=== PATIENT | female | born 1940 | race Caucasian/White ===

== ENCOUNTER → 2019-02-18 08:58 | Outpatient (CLI) | payer OTHER, SELFPAY ==
[2019-01-21 14:13] VITALS: BMI 27.3
--- NOTE | 2019-02-18 09:01 | ECHOD_ITS ---
Reason For Study: PHTN Procedure This was a 2D Doppler, Color Flow transthoracic echocardiogram. Exam performed in department. Left Ventricle Mild concentric left ventricular hypertrophy. The estimated ejection fraction is 40-45 %. Paced septal motion. Stage 1 diastolic dysfunction. There is moderate global hypokinesis of the left ventricle. Right Ventricle Normal size and thickness. ICD or pacer leads identified within the right ventricle. Normal systolic function. Atria The left atrium is severely enlarged. The right atrium is severely enlarged. Normal atrial septum. Mitral Valve Mild diffuse mitral valve thickening. Mild mitral annular calcification extending into the posterior leaflet. Mild (1+) posteriorly directed mitral valve insufficiency. Tricuspid Valve Normal tricuspid valve. Trivial tricuspid valve insufficiency. Right ventricular systolic pressure estimated to be 31 mmHg. Aortic Valve Trisinus/trileaflet aortic valve. Normal aortic valve. Pulmonic Valve Normal pulmonic valve. Trivial pulmonic valve insufficiency. Great Vessels Normal aortic root. Normal arch. Normal inferior vena cava. Inferior vena cava collapse with sniff. Pericardium/Pleural No pericardial effusion. MMode/2D Measurements & Calculations LVIDd: 4.5 cm IVSd: 1.5 cm LA dimension: 4.9 cm LVIDs: 3.7 cm LVPWd: 1.5 cm FS: 16.8 % LAV(MOD-bp): 98.2 ml LA A4 area: 28.3 cm2 RA A4 area: 24.8 cm2 LAV(MOD-bp) Indexed: 59.1 ml/m2 LAV(MOD-sp2): 98.7 ml LAV(MOD-sp4): 96.4 ml Time Measurements MV dec time: 0.36 sec Doppler Measurements & Calculations MV E max catrina: 55.3 cm/sec MV V2 max: 96.3 cm/sec MV P1/2t max catrina: 68.4 cm/sec MV A max catrina: 81.7 cm/sec MV max P.7 mmHg MV P1/2t: 89.6 msec MV E/A: 0.68 MV V2 mean: 53.9 cm/sec MV dec slope: 223.4 cm/sec2 MV mean P.4 mmHg MVA(P1/2t): 2.5 cm2 MV V2 VTI: 29.0 cm Ao V2 max: 109.5 cm/sec LV V1 max: 81.4 cm/sec MR max catrina: 610.6 cm/sec Ao max P.8 mmHg LV V1 max P.7 mmHg MR max P.1 mmHg Ao V2 mean: 71.8 cm/sec LV V1 mean P.2 mmHg MR mean catrina: 405.3 cm/sec Ao mean P.4 mmHg LV V1 mean: 50.1 cm/sec MR mean P.0 mmHg Ao V2 VTI: 21.7 cm LV V1 VTI: 17.0 cm MR VTI: 239.3 cm PA V2 max: 61.6 cm/sec PI end-d catrina: 122.3 cm/sec TR max catrina: 252.8 cm/sec TR max P.6 mmHg Interpretation Summary Mild concentric left ventricular hypertrophy. The estimated ejection fraction is 40-45 %. There is moderate global hypokinesis of the left ventricle. Stage 1 diastolic dysfunction. The left atrium is severely enlarged. The right atrium is severely enlarged. Mild (1+) posteriorly directed mitral valve insufficiency. Trivial tricuspid valve insufficiency. Right ventricular systolic pressure estimated to be 31 mmHg. Compared to echo report dated 01/06/2017, no appreciable changes noted. Ordering Physician: Jostin Banks Referring Physician: PHILLIP WOOTEN Performed By: Vladimir Lugo RCS
== END ==
PROVIDERS: Family Provider Family Medicine; PCP Family Medicine; Referring Provider Internal Medicine Cardiovascular Disease; Visit Provider Internal Medicine Cardiovascular Disease
DX: I27.20 Pulmonary hypertension, unspecified (principal); I25.10 Atherosclerotic heart disease of native coronary artery without angina pectoris; I10 Essential (primary) hypertension
CPT/HCPCS: 93306

== ENCOUNTER → 2019-03-27 11:21 | Outpatient (CLI) | payer OTHER, SELFPAY ==
[2019-01-21 14:13] VITALS: BMI 27.3
--- NOTE | 2019-03-27 11:24 | US_ITS ---
STUDY: RENAL ULTRASOUND - COMPLETE REASON FOR EXAM: Female, 78 years old. Recurrent urinary tract infection. TECHNIQUE: Ultrasound evaluation of the kidneys was performed with real-time and static felder-scale imaging. COMPARISON: None. FINDINGS: RIGHT KIDNEY: Normal location of the right kidney, which is normal in size. The right kidney measures 8.4 x 4.8 x 4.5 cm. There is a normal cortex of the right kidney. The renal cortex measures 1.5 cm. There is no right renal mass or cyst. There are no right renal calculi. There is no right hydronephrosis. DISTAL RIGHT URETER: There is non-visualization of the distal right ureter. There is no demonstrated right ureterovesical junction calculus. There is a visualized right ureteral jet. LEFT KIDNEY: Normal location of the left kidney, which is normal in size. The left kidney measures 8.6 x 3.9 x 4.7 cm. There is a normal cortex of the left kidney. The renal cortex measures 1.2 cm. There is no left renal mass or cyst. There are no left renal calculi. There is no left hydronephrosis. DISTAL LEFT URETER: There is non-visualization of the distal left ureter. There is no demonstrated left ureterovesical junction calculus. There is a visualized left ureteral jet. BLADDER: The urinary bladder has a volume of 237.3 ml. There is a normal wall thickness of the distended urinary bladder. There is a urinary degree with no distinct mass seen. There are no demonstrated bladder calculi. US/Kidney and Bladder IMPRESSION: Normal ultrasound of the kidneys. Nonspecific urinary debris, remainder of the urinary bladder ultrasound unremarkable. Electronically Signed: Kate Kirby MD at 4:37 EDT , Service support ,
== END ==
PROVIDERS: Family Provider Family Medicine; PCP Family Medicine; Referring Provider Urology; Visit Provider Urology
DX: N39.0 Urinary tract infection, site not specified (principal)
CPT/HCPCS: 76770

== ENCOUNTER → 2020-09-16 07:54 | Outpatient (CLI) | payer SELFPAY, OTHER ==
[2020-09-14 13:48] VITALS: BMI 24.9
--- NOTE | 2020-09-16 07:55 | ECHOD_ITS ---
Reason For Study: PRE OPERATIVE Procedure This was a 2D Doppler, Color Flow transthoracic echocardiogram. The exam was of adequate technical quality. Exam performed in department. Left Ventricle Normal LV size. Moderate segmental systolic dysfunction (see wall motion). The estimated ejection fraction is 35 %. Unable to assess diastolic dysfunction. Infero-Basal: Akinetic. Basal inferoseptal: Hypokinetic. Basal anteroseptal: Akinetic. Mid-Posterior: Hypokinetic. Mid-Inferior: Akinetic. Mid-inferoseptal : Akinetic. Mid-anteroseptal : Akinetic. Inferior [place] : Akinetic. Lateral [place] : Hypokinetic. Septal [place] : Akinetic. Right Ventricle Normal RV size. ICD or pacer leads identified within the right ventricle. Normal systolic function. Atria The left atrium is severely enlarged. The right atrium is severely enlarged. ICD or pacer leads identified within the right atrium. No doppler evidence for ASD. Mitral Valve There is mild mitral annular calcification. Extension of the mitral annular calcification on the base of the posterior mitral valve leaflet. Mild (1+) mitral valve insufficiency. Tricuspid Valve Normal tricuspid valve. Mild tricuspid valve insufficiency. Right ventricular systolic pressure estimated to be 29 mmHg. Aortic Valve Trisinus/trileaflet aortic valve. Mild focal aortic valve thickening. Pulmonic Valve The pulmonic valve is not well visualized. Mild-Moderate (1-2+) pulmonic valve insufficiency. Great Vessels Normal sized aortic root. Pericardium/Pleural Trivial pericardial effusion. There are no echocardiographic indications of cardiac tamponade. MMode/2D Measurements & Calculations LVIDd: 4.9 cm IVSd: 1.3 cm Ao root diam: 2.9 cm LVIDs: 3.8 cm LVPWd: 1.2 cm FS: 22.1 % LAV(MOD-bp): 139.7 ml LVAd ap4: 23.4 cm2 LVAd ap2: 23.6 cm2 LAV(MOD-bp) Indexed: 81.9 ml/m2 LVLd ap4: 7.1 cm LVLd ap2: 7.4 cm LAV(MOD-sp2): 139.5 ml EDV(MOD-sp4): 66.7 ml EDV(MOD-sp2): 65.8 ml LAV(MOD-sp4): 139.7 ml EDV(sp4-el): 65.5 ml EDV(sp2-el): 64.5 ml LVAs ap4: 17.6 cm2 LVAs ap2: 18.1 cm2 LVLs ap4: 6.4 cm LVLs ap2: 7.2 cm ESV(MOD-sp4): 41.5 ml ESV(MOD-sp2): 39.9 ml ESV(sp4-el): 41.1 ml ESV(sp2-el): 38.5 ml EF(MOD-sp4): 37.8 % EF(MOD-sp2): 39.4 % EF(sp4-el): 37.3 % SV(MOD-sp4): 25.2 ml SV(MOD-sp2): 25.9 ml SV(sp4-el): 24.5 ml LA dimension(2D): 5.1 cm LA A4 area: 34.9 cm2 RA A4 area: 35.2 cm2 Doppler Measurements & Calculations MV E max catrina: 117.1 cm/sec Ao V2 max: 101.3 cm/sec LV V1 max: 71.6 cm/sec Ao max P.1 mmHg LV V1 max P.1 mmHg PA V2 max: 73.1 cm/sec TR max catrina: 256.4 cm/sec TR max P.3 mmHg ECHO/Echo Complete Interpretation Summary Moderate segmental systolic dysfunction (see wall motion). The estimated ejection fraction is 35 %. The left atrium is severely enlarged. The right atrium is severely enlarged. There is mild mitral annular calcification. Extension of the mitral annular calcification on the base of the posterior mitr al valve leaflet. Mild (1+) mitral valve insufficiency. Mild tricuspid valve insufficiency. Mild focal aortic valve thickening. Mild-Moderate (1-2+) pulmonic valve insufficiency. Trivial pericardial effusion. There are no echocardiographic indications of cardiac tamponade. Right ventricular systolic pressure estimated to be 29 mmHg. Unable to assess diastolic dysfunction. ICD or pacer leads identified within the right atrium ICD or pacer leads identified within the right ventricle. Ordering Physician: La^Joseph^^^ Referring Physician: Abelardo Slade Performed By: Martine Stephens, RDCS, RVT
== END ==
PROVIDERS: PCP Family Medicine; Referring Provider Internal Medicine Cardiovascular Disease; Visit Provider Internal Medicine Cardiovascular Disease
DX: Z01.810 Encounter for preprocedural cardiovascular examination (principal); I47.1 Supraventricular tachycardia; I34.0 Nonrheumatic mitral (valve) insufficiency; I47.2 Ventricular tachycardia; I25.10 Atherosclerotic heart disease of native coronary artery without angina pectoris; Z95.0 Presence of cardiac pacemaker
CPT/HCPCS: 93306

== ENCOUNTER 2020-09-28 03:00 | Inpatient (IN) | payer OTHER, SELFPAY ==
[2020-09-14 13:48] VITALS: BMI 24.9
[2020-09-28] VITALS (12 sets, daily range): BP systolic 113–162; BP diastolic 56–88; PULSE 71–87; RESP 16–18; TEMP 36–36.9; O2SAT 95–98; BMI 25.0
--- NOTE | 2020-09-28 03:07 | HP.PCM.HOS_ITS ---
[facility] - General General Date of Admission: 09/28/20 HPI Narrative DANI OROZCO, is a 80 F with a significant history of complete uterovaginal prolapse; paroxysmal A. fib; hypertension and heart failure with reduced ejection fraction who presents emergency department with 2-day history of prog ressively worsening shortness of breath. Shortness of breath is at rest and it increases markedly with mild exertion. Associated with his symptoms is orthopnea and increased bilateral lower extremities swelling. Further patient reports weakness that has been going on for about 1 week and a half. Further patient reports urinary discharge; dysuria and urinary retention with dribbling. Patient went to [facility] ED where a Harvey catheter was placed. At the outside hospital urinalysis was abnormal. Patient received ceftriaxone. Patient was transferred to our hospital because she sees Dr. Concepcion, urologist and Dr. Tovar cardiology. Patient reports that she has hysterectomy scheduled for October 30, 2020. [facility] Medical History (Updated 09/28/20 @ 04:[address] Ming Russell MD) Atherosclerotic heart disease of [place] coronary artery without angina pectoris CHF (congestive heart failure) Complete uterovaginal prolapse Diastolic dysfunction Essential hypertension H/O sinus bradycardia h/o spinal stenosis LBBB (left bundle branch block) LV dysfunction Mild pulmonary hypertension Nonrheumatic mitral valve insufficiency Nonsustained ventricular tachycardia Paroxysmal supraventricular tachycardia Presence of cardiac pacemaker (~12/29/16) SOB (shortness of breath) Tachycardia Urge incontinence Home Medications Rafy-Mag 1 cap PO DAILY 01/06/17 [History Last Taken 01/06/17] aspirin 81 mg PO DAILY@0800 01/06/17 [History Last Taken 01/05/17] vitamin E (dl, acetate) 400 units PO DAILY 01/06/17 [History Last Taken 01/05/17] furosemide 40 mg tablet 40 mg PO DAILY PRN tab 09/14/20 [History Last Taken Unknown] trazodone 50 mg tablet 50 mg PO DAILY 09/14/20 [History Last Taken Unknown] amlodipine 2.5 mg PO DAILY 09/28/20 [History Last Taken Unknown] carvedilol 6.25 mg PO BID 09/28/20 [History Last Taken Unknown] lisinopril 20 mg PO BID 09/28/20 [History Last Taken Unknown] Allergy/AdvReac Type Severity Reaction Status Date / Time No Known Allergies Allergy Verified 09/28/20 02:22 Family History Father CAD (coronary artery disease) Mother CAD (coronary artery disease) Surgical History (Updated 09/18/20 @ 10:46 by Maribel Lange) History of bilateral cataract extraction History of cystoscopy Previous back surgery S/P appendectomy S/P cholecystectomy Social History Smoking Status: Never smoker alcohol intake: never substance use type: does not use what type of physical activity do you participate in: none additional social history: ROS ROS Narrative 12 point review of system is negative except as stated in HPI. Vital Signs Vital Signs Vital Signs: 09/28/20 02:15 Temperature 97.3 F L Temperature Source Oral Pulse Rate 87 Respiratory Rate 16 Blood Pressure 162/88 H Blood Pressure Mean 112 Blood Pressure Source Monitor Blood Pressure Position Semi-Fowlers Blood Pressure Location Right Arm Pulse Ox 95 Oxygen Delivery Method Room Air Physical Exam Narrative Alert and oriented x3 Nontraumatic; normocephalic Lung clear to auscultate Heart sounds S1-S2. Rate and rhythm irregularly irregular. Abdomen bowel sounds present soft, nontender nondistended. Urinary catheter in place. Bilateral lower feet and bilateral distal legs with edema. Assessment & Plan Assessment/Plan (1) Heart failure with reduced ejection fraction: Status: Acute Code(s): I50.20 - Unspecified systolic (congestive) heart failure Plan: With elevated BNP at outside hospital. Discussed with emergency department doctor at outside hospital to give Lasix. Hold home p.o. Lasix. Lasix 40 mg IV twice daily ordered. Potassium supplementation ordered. Trend BMP. Fluid restriction. Cardiac diet. Strict intake and output. Elevate bilateral lower legs. Radhames wrap to bilateral lower legs. With pacemaker Last echocardiogram on file 09/16/2020. Echocardiogram. Mild valvular disease. Right ventricular systolic pressure was 29 mmHg. Guideline directed medications of carvedilol and lisinopril continued. (2) Complete uterovaginal prolapse: Status: Acute Code(s): N81.3 - Complete uterovaginal prolapse Plan: Harvey catheter placed at outside hospital ED continued. Urology consult. (3) Cystitis: Status: Acute Code(s): N30.90 - Cystitis, unspecified without hematuria Plan: Patient reports that although urology is aware that she has cystitis her urology did not want any antibiotics given. Received ceftriaxone the emergency department. Ceftriaxone continued. Urology consult. (4) Paroxysmal A-fib: Status: Acute Code(s): I48.0 - Paroxysmal atrial fibrillation Plan: Patient reports that per last visit to cardiology, after hysterectomy anticoagulant will be considered. Reviewed Dr. Tovar's notes on 09/14/2020. Per Dr. Tovar's notes if patient remains in atrial fibrillation/flutter she should be considered for anticoagulation. Hold off anticoagulation for now. Carvedilol continued. (5) Essential hypertension: Status: Chronic Code(s): I10 - Essential (primary) hypertension Plan: Hypertension Blood pressure is not within goal Home blood pressure medication continued. Trend blood pressure and adjust blood pressure medications. Visit Charges Inpatient E&M: 23871 Init Hosp L3
[2020-09-28 05:59] LABS: Absolute Lymphocyte Count 1.46 X10^3/uL (0.83-4.51); Absolute Neutrophil Count 3.4 X10^3/uL (2.0-7.7); Basophil# 0.04 X10^3/uL; Basophil% 0.7 % (0-1); Eosinophils% 3.5 % (0-5); Hematocrit 36.7 % (37-47); Hemoglobin 12.1 g/dL (12.0-15.0); Lymphocyte # 1.46 X10^3/ul (0.83-4.51); Lymphocyte % 25.5 % (19-41); Mean Corpuscular Volume 91.1 fL (81-99); Mean Platelet Vol. 10.9 fl (6.2-12.0); Monocyte% 10.5 % (0-10); NRBC Flagged by Analyzer 0 % (0-5); Neutrophil # 3.41 X10^3/uL (2.7-7.7); Neutrophil % 59.5 % (47-70); Platelet Count 190 K/mm3 (150-450); RBC Distribution Width CV 13.4 % (11.6-14.6); RBC Distribution Width SD 44.9 fl (35.1-43.9); Red Blood Count 4.03 M/mm3 (4.2-5.4); White Blood Count 5.7 K/mm3 (4.4-11.0)
[2020-09-28 06:42] LABS: Anion Gap 8 (5-15); BUN 16 mg/dL (7-18); BUN/Creat Ratio 22.7 RATIO (10-20); Calcium,Total 8.3 mg/dL (8.5-10.1); Chloride 106 mmol/L (98-107); EST Glomerular Filtration Rate 85 mL/min (>60); Est Glom Filt Rate - Afr Amer 102 mL/min (>60); Estimated Creatinine Clearance 37.45 ml/min; Glucose 92 mg/dL (74-106); Magnesium 2.1 mg/dL (1.6-2.6); Potassium 3.1 mmol/L (3.5-5.1); Sodium Level 139 mmol/L (136-145)
--- NOTE | 2020-09-28 08:33 | PCM.PN.HOSP ---
Subjective Subjective: Patient with significant improvement in dyspnea sensation since initial ED presentation early in AM. Patient notes continued diuresis with Harvey catheter in place. Discussed current presentation with her and her daughter and she notes that she is supposed to have intervention per urology secondary to significant uterine prolapse with worsening issues with frequency and urinary retention. Discussed case also with patient's urologist, Dr. Concepcion as well as with family and will keep Harvey catheter in until patient surgical intervention performed. Patient denies any chest discomfort with recent dyspnea presentation. She does admit to swelling and orthopnea however. Patient denies fevers, chills, nausea, emesis, abdominal pain, chest pain. Objective Data Objective Data Vital Signs: Vital Signs Temp Pulse Resp BP Pulse Ox 98.4 F 71 18 150/83 H 98 09/28/20 06:20 09/28/20 06:59 09/28/20 06:20 09/28/20 06:20 09/28/20 07:32 Oxygen Delivery Method Room Air Weight: 145 lb 8.081 oz Body Mass Index (BMI) 25.0 Intake & Output: Intake and Output for Last 24 Hours 09/26/20 09/27/20 09/28/20 23:59 23:59 23:59 Intake Total 100 / 100 Output Total 1300 / 1300 Balance -1200 / -1200 Lab / Micro Data Result Diagrams: 09/28/20 05:38 09/28/20 14:48 Labs: Laboratory Results - last 24 hr 09/28/20 09/28/20 05:38 05:38 WBC 5.7 RBC 4.03 L Hgb 12.1 Hct 36.7 L MCV 91.1 MCH 30.0 MCHC 33.0 RDW Std Deviation 44.9 H RDW Coeff of [place] 13.4 Plt Count 190 MPV 10.9 Immature Gran % (Auto) 0.300 Neut % (Auto) 59.5 Lymph % (Auto) 25.5 [place] % (Auto) 10.5 H Eos % (Auto) 3.5 Baso % (Auto) 0.7 Absolute Neuts (auto) 3.4 Absolute Lymphs (auto) 1.46 Nucleated RBC % 0 Sodium 139 Potassium 3.1 L Chloride 106 Carbon Dioxide 25.0 Anion Gap 8 BUN 16 Creatinine 0.70 Estim Creat Clear Calc 37.45 Est GFR (MDRD) Af Amer 102 Est GFR (MDRD) Non-Af 85 BUN/Creatinine Ratio 22.7 H Glucose 92 Calcium 8.3 L Magnesium 2.1 Physical Exam Narrative Physical Examination: General: awake, alert, oriented x 3 and cooperative, seated upright in the PCU bed in no apparent distress. Skin: normal color, turgor, no icterus, cyanosis. HEENT: AT/NC, EOMI, PERRLA, MMM. Lungs: Diminished breath sounds, greater bases, moderate effort, improving, mild rales bases, ronchi or wheezing. Heart: Regular rate and rhythm; no gallop, rub audible. Abdomen: soft, NTTP, ND, normal BS. : Harvey catheter in place, clear urine draining. Extremities: no cyanosis or clubbing, mild pedal to distal [place] edema. Neurological: patient awake, alert, oriented as noted; cognitive function intact; pupils equally reactive to light and accomodation; cranial nerves II-XII grossly normal, moving all 4 extremities, no focal deficits, strength moderately global decrease secondary to acute presentation. Psychiatric: affect appears fatigued otherwise normal, no acute evidence of depressive or anxiety feelings. Assessment & Plan Assessment/Plan (1) Heart failure with reduced ejection fraction: Status: Acute Code(s): I50.20 - Unspecified systolic (congestive) heart failure (2) Complete uterovaginal prolapse: Status: Acute Code(s): N81.3 - Complete uterovaginal prolapse (3) Paroxysmal A-fib: Status: Acute Code(s): I48.0 - Paroxysmal atrial fibrillation (4) Essential hypertension: Status: Chronic Code(s): I10 - Essential (primary) hypertension (5) Presence of cardiac pacemaker: Status: Chronic Code(s): Z95.0 - Presence of cardiac pacemaker (6) CAD (coronary artery disease): Status: Acute Code(s): I25.10 - Atherosclerotic heart disease of [place] coronary artery without angina pectoris Plan: The patient is an 80 y/o F w/ PMHx: Chronic anemia, CAD, HTN, HLD, PAF, Systolic CHF, Hx SVT/Bradycardia s/p pacemaker placement, Complete uterovaginal prolapse who presents to the [facility] on 09/28[facility]20 with history of worsening symptoms over 1.5 weeks however more severe over the last 2 days of progressively worsening dyspnea, worse with exertion with orthopnea and increased bilateral lower extremity swelling as well as mild weight gain. 1. Acute Decompensated Systolic CHF: Patient admitted to the PCU, maintained on cardiac telemetry, continue IV lasix diuresis, monitor I/Os, maintain on intake restriction, continue medical therapy, obtain TSH and magnesium level. Most recent ECHO noted 09/16/20 with moderate segmental systolic dysfunction, EF 35%, severely enlarged LA and RA, mild MVI, mild TVI, mild to moderate TBI, trivial pericardial effusion with no evidence of cardiac tamponade, RVSP 29 mmHg, evidence of pacer leads within right atrium and right ventricle. PRN morphine to decrease afterload, continue oxygen supplementation, if necessary will position w/ upright position with legs off bed to decrease preload. 2. Dysuria with urinary retention, frequency secondary to complete uterovaginal prolapse: Urinalysis not marked appearing with no obvious evidence of UTI, will discontinue Rocephin therapy, discussed case with patient's urologist, Dr. Concepcion who agreed with continuation of Harvey catheter upon discharge, plan follow-up in her office in 1 week, required repeat evaluation per cardiology prior to consideration of surgical intervention which had been arranged for this coming October. 3. CAD: We will continue patient aspirin, Coreg, lisinopril regimen, not on statin therapy but will defer given age. 4. Hypertension: Continue home regimen including Norvasc, Coreg, lisinopril, IV Lasix as noted, PRN hydralazine. 5. Hyperlipidemia: Not on statin, defer given age, FLP with total cholesterol 202, triglycerides 104, LDL 122, VLDL 21, HDL 59. 6. Chronic normocytic anemia: Admission hemoglobin 12.1, previously had been 9-10, improved, continue to trend. 7. PAF: We will continue patient on Coreg regimen, not anticoagulated, sinus rhythm upon presentation. 8. History cardiac arrhythmia/SVT/bradycardia: Status post pacemaker status. 9. DVT prophylaxis: SCDs, lovenox. 10. CODE status: DNR-CCA, no intubation status. Procedures Hospitalists Procedures: Other Procedure - See Report (Not billable, patient admitted after midnight.)
[2020-09-28] MEDS: Lisinopril 20 MG Tablet PO ×2 (09:11→21:16)
[2020-09-28] MEDS: Potassium Chloride Oral Tablet 20 MEQ 40 MEQ PO (09:11)
[2020-09-28] MEDS: Vitamin E 400 UNITS Capsule PO (09:11)
[2020-09-28] MEDS: Aspirin 81 MG TAB.CHEW PO (09:11)
[2020-09-28] MEDS: Carvedilol 6.25 MG Tablet PO ×2 (09:11→16:19)
[2020-09-28] MEDS: amLODIPine 2.5 MG Tablet PO (09:11)
[2020-09-28] MEDS: Furosemide 40 MG/4 ML Vial IV ×2 (09:12→17:32)
--- NOTE | 2020-09-28 10:15 | CASEMGMT ---
AARON BAGLEY Assessment: Face to Face with pt for initial transition planning/care coordination assessment. AARON BAGLEY introduced self and role at [facility], pt voices understanding and consents to assessment. Pt is A/O x4 and answers all questions appropriately at this time. Pt sitting up in bed with daughter in law, Sarah Vega at bedside. Care providers, pharmacy, and demographics verified/updated. Admitting Dx: Acute exac of heart failure PCP: [facility] Specialists: Kj,cardio; SUSANNA Concepcion; Nelda, stud beef cattle farmer Preferred [facility]acy: [facility] in [place] Insurance: [employer] Prescription Benefit: No LNOK: Brisa Corona, dtr; Hood Vega, son Living Arrangements: Pt lives alone in a single story house with 2 steps to enter with a rail. Pt son lives next door to pt. Pt states she is I in ADL's. Denies concerns at home. Transportation: Pt hires drivers for transport. Denies concerns with transportation. DME/HHC/SNF: Pt reports having a cane, walker, shower chair and grab bar at toilet. Denies need for further DME. Pt denies previous HHC and SNF stay. Pt states no concerns with going home at time of dc. She was recently told of the possibility of going home with the marcial. She would be agreeable to having a SN come to the home for education. Dtr in law agrees with pt. Patient was provided a list of HHC providers including quality and resource use data and consistent with the patient?s preferred geographic region, medical needs, and insurance network. CM to check back with pt on preferred provider. Advised pt to ask CM if any further question/concerns/needs arise, voices understanding. Pt Goal: Home with HHC. Plan: Home with HHC and family support.
[2020-09-28 15:28] LABS: Anion Gap 7 (5-15); BUN 17 mg/dL (7-18); BUN/Creat Ratio 22.3 RATIO (10-20); Chloride 105 mmol/L (98-107); Creatinine, Serum 0.76 mg/dL (0.55-1.02); EST Glomerular Filtration Rate 77 mL/min (>60); Est Glom Filt Rate - Afr Amer 93 mL/min (>60); Estimated Creatinine Clearance 37.45 ml/min; Glucose 99 mg/dL (74-106); Potassium 3.7 mmol/L (3.5-5.1); Sodium Level 140 mmol/L (136-145)
--- NOTE | 2020-09-28 15:36 | CHAPLAIN ---
Type of Pastoral Visit _x__ Initial Visit ___ Follow-up Visit ___ On-call Visit ___ General Patient Visit ___ Spiritual Assessment ___ Family Conference ___ Bereavement ___ Rapid Response ___ Code Blue ___ Other (describe below) Pastoral Care Referral From _x__ Patient ___ Family ___ Nurse ___ Physician ___ Finish Cleaner ___ Pipe Maker ___ Other (describe below) Sacrament/Intervention _x__ Active listening ___ Anointing ___ Jainism ___ Bereavement ___ Communion ___ Karina exploration ___ ___ Life review ___ Prayer ___ Reconciliation ___ Sacrament of Sick _x__ Supportive presence ___ Wedding ___ Other (describe below) Pastoral Comments
[2020-09-28] MEDS: Acetaminophen 325 MG Tablet 650 MG PO (16:19)
[2020-09-28] MEDS: 0.9% Saline Lock 10 ML Syringe IV (17:32)
[2020-09-28] MEDS: traZODone 50 MG Tablet PO (21:16)
[2020-09-29] VITALS (7 sets, daily range): BP systolic 118–139; BP diastolic 66–77; PULSE 64–88; RESP 18; TEMP 36.2–36.9; O2SAT 95–97
[2020-09-29] MEDS: Enoxaparin 40 MG/0.4 ML Syringe SC (05:21)
[2020-09-29] MEDS: Carvedilol 6.25 MG Tablet PO (08:33)
[2020-09-29] MEDS: Vitamin E 400 UNITS Capsule PO (08:33)
[2020-09-29] MEDS: Aspirin 81 MG TAB.CHEW PO (08:33)
[2020-09-29] MEDS: Potassium Chloride Oral Tablet 20 MEQ 40 MEQ PO ×2 (08:33→11:57)
--- NOTE | 2020-09-29 09:35 | CASEMGMT ---
Addendum entered by Nanette Amor 09/29/20 13:17: Received tc back from [facility] that they are able to accept pt. Pt and dil aware. No further needs. Pt talking to [facility] when CM in room. Addendum entered by Nanette Amor 09/29/20 12:47: TC to [facility], they are unsure if they have staffing for pt. TC to [facility] and their [place] office has closed, awaiting [place] office for acceptance. RN CM in to pt room to update. She chooses [facility] for third choice. TC to [facility] and left message on vm. Awaiting call back. Original Note: RN KEVYN in to pt room to see if preferred provider for HHC was chosen. Pt chose 1. [facility] 2. [facility]. TC to [facility] to make referral, spoke with Stacie. She will check and call this CM back for acceptance.
[2020-09-29] MEDS: Furosemide 40 MG Tablet PO (10:08)
[2020-09-29] MEDS: amLODIPine 2.5 MG Tablet PO (10:08)
[2020-09-29] MEDS: Lisinopril 20 MG Tablet PO (10:08)
[2020-09-29 10:54] LABS: Absolute Lymphocyte Count 1.02 X10^3/uL (0.83-4.51); Absolute Neutrophil Count 3.5 X10^3/uL (2.0-7.7); Basophil# 0.05 X10^3/uL; Basophil% 0.9 % (0-1); Eosinophil# 0.16 X10^3/uL; Hematocrit 37.9 % (37-47); Hemoglobin 12.5 g/dL (12.0-15.0); Lymphocyte # 1.02 X10^3/ul (0.83-4.51); Lymphocyte % 19.4 % (19-41); Mean Corpuscular Hgb 30.7 pg (27.0-32.0); Mean Corpuscular Volume 93.1 fL (81-99); Monocyte# 0.54 X10^3/uL; Monocyte% 10.2 % (0-10); NRBC Flagged by Analyzer 0 % (0-5); Neutrophil # 3.49 X10^3/uL (2.7-7.7); Neutrophil % 66.3 % (47-70); Platelet Count 201 K/mm3 (150-450); RBC Distribution Width CV 13.5 % (11.6-14.6); RBC Distribution Width SD 46.6 fl (35.1-43.9); Red Blood Count 4.07 M/mm3 (4.2-5.4); White Blood Count 5.3 K/mm3 (4.4-11.0)
[2020-09-29] MEDS: 0.9% Saline Lock 10 ML Syringe IV (11:16)
[2020-09-29] MEDS: Ceftriaxone 1 GM/50 ML BAG IV (11:16)
[2020-09-29 11:19] LABS: Anion Gap 8 (5-15); BUN 18 mg/dL (7-18); BUN/Creat Ratio 18.1 RATIO (10-20); Calcium,Total 8.2 mg/dL (8.5-10.1); Chloride 105 mmol/L (98-107); EST Glomerular Filtration Rate 57 mL/min (>60); Est Glom Filt Rate - Afr Amer 68 mL/min (>60); Estimated Creatinine Clearance 37.45 ml/min; Glucose 169 mg/dL (74-106); Potassium 3.2 mmol/L (3.5-5.1); Sodium Level 140 mmol/L (136-145)
--- NOTE | 2020-09-29 11:23 | PCM.DC ---
Discharge Instructions Outpatient Procedure Reason For Visit: ACUTE EXACERBATIONOF HEART FAILURE WITH REDUCED Diet Discharge Diet: Low fat / Low cholesterol (Cardiac diet recommended, may liberalize to 2000 ml daily fluid chadwick.) Activity Discharge Activity: Return to Normal Activity Weight Bearing Status: Weight bearing as tolerated Additional Activity Instructions:: Please continue marcial catheter with care as taught during admission until re-evaluation with Dr. Concepcion given retention, frequency and recent UTI in setting of prolapse. Dressing / Incision Call your doctor if you observe: Fever of 101 or Higher, Inability to urinate (If any issues with marcial or not draining urine appropriately.), Inability to have a bowel movement, Shortness of breath, Fainting spells, Swelling in the ankles, Chest pain, Uncontrolled pain and - (Please call your mental health social worker if weight gain above 5 lbs.) Follow Up Care Please Follow Up With: Abelardo Slade When: Follow-up within 3-5 days to review admission, CHF exacerbation, UTI w/ urinary retention requiring marcial with planned Urology follow-up complicated by uterine prolapse. Test Results: Test results from this visit will be discussed in further detail at your follow-up appointment, if applicable. Discharge Plan Admission Admit Date/Time: 09/28/20 03:00 Primary Reason for Your Visit: Acute Diastolic CHF exacerbation, Klebsiella UTI, Urinary retention Attending Provider: Lorena Mendez Primary Care Provider: Abelardo Slade Instructions Patient Instructions: Heart Failure: Tracking Your Weight, Heart Failure: Making Changes to Your Diet, Taking Diuretics, ED Heart Failure, Congestive (CHF), ED Marcial Catheter, Care, ED Bladder Infection, Female (Adult) Additional Instructions / Restrictions: Given recent initiation routine lasix please have repeat basic metabolic panel to assess renal function at your follow-up with your primary care physician. Discharge Orders/Prescriptions Prescriptions: New furosemide 40 mg Tablet 40 mg PO DAILY 30 Days Qty: 30 RF: 0 potassium chloride [Klor-Con M20] 20 mEq Tablet,Er Particles/Crystals 40 meq PO DAILYCM 30 Days Qty: 30 RF: 0 cephalexin 500 mg capsule 500 mg PO Q8H 5 Days Qty: 15 RF: 0 Continued trazodone 50 mg tablet 50 mg PO DAILY RF: 0 aspirin 81 MG tablet,chewable 81 mg PO DAILY@0800 RF: 0 vitamin E (dl, acetate) 400 UNITS capsule 400 units PO DAILY RF: 0 Rafy-Mag 1 cap PO DAILY RF: 0 lisinopril 20 mg tablet 20 mg PO BID RF: 0 amlodipine 2.5 mg tablet 2.5 mg PO DAILY RF: 0 carvedilol 3.125 mg tablet 6.25 mg PO BID RF: 0 Discontinued furosemide [Lasix] 40 mg tablet 40 mg PO DAILY PRN (Reason: CHF, Edema) RF: 0 Referrals: Abelardo Slade MD [Primary Care Provider] - Disposition Disposition (needs filled in before D/C Order can be placed): Home, self care
--- NOTE | 2020-09-29 11:43 | DS.PCM_ITS ---
Providers Date of Admission: 09/28/20 Primary Care Physician: Dr. Abelardo Slade MD Reason For Visit: ACUTE EXACERBATIONOF HEART FAILURE WITH REDUCED Diagnosis Discharge Diagnosis (1) Heart failure with reduced ejection fraction: Status: Acute Code(s): I50.20 - Unspecified systolic (congestive) heart failure (2) Complete uterovaginal prolapse: Status: Acute Code(s): N81.3 - Complete uterovaginal prolapse (3) Paroxysmal A-fib: Status: Acute Code(s): I48.0 - Paroxysmal atrial fibrillation (4) Essential hypertension: Status: Chronic Code(s): I10 - Essential (primary) hypertension (5) Presence of cardiac pacemaker: Status: Chronic Code(s): Z95.0 - Presence of cardiac pacemaker (6) CAD (coronary artery disease): Status: Acute Code(s): I25.10 - Atherosclerotic heart disease of [place] coronary artery without angina pectoris Medications at Discharge Home Medications Rafy-Mag 1 cap PO DAILY 01/06/17 aspirin 81 mg PO DAILY@0800 01/06/17 vitamin E (dl, acetate) 400 units PO DAILY 01/06/17 trazodone 50 mg tablet 50 mg PO DAILY 09/14/20 amlodipine 2.5 mg PO DAILY 09/28/20 carvedilol 6.25 mg PO BID 09/28/20 lisinopril 20 mg PO BID 09/28/20 cephalexin 500 mg PO Q8H 5 Days #15 cap 09/29/20 furosemide 40 mg PO DAILY 30 Days #30 tab 09/29/20 potassium chloride [Klor-Con M20] 40 meq PO DAILYCM 30 Days #30 tab 09/29/20 Hospital Course Operations None Procedures EKG Summary of Care Provided Minutes Spent on Discharge: 35 Hospital Course: The patient is an 80 y/o F w/ PMHx: Chronic anemia, CAD, HTN, HLD, PAF, Systolic CHF, Hx SVT/Bradycardia s/p pacemaker placement, Complete uterovaginal prolapse who presented to the [facility] on 09/28/20 with history of worsening symptoms over 1.5 weeks however more severe over the last 2 days of progressively worsening dyspnea, worse with exertion with orthopnea and increased bilateral lower extremity swelling as well as mild weight gain. Patient admitted to the PCU, maintained on cardiac telemetry, continued initial IV lasix diuresis w/ oral transition on 09/29/20, monitored I/Os, maintained on intake restriction, continued medical therapy, magnesium level 2.1. Most recent ECHO noted 09/16/20 with moderate segmental systolic dysfunction, EF 35%, severely enlarged LA and RA, mild MVI, mild TVI, mild to moderate TBI, trivial pericardial effusion with no evidence of cardiac tamponade, RVSP 29 mmHg, evidence of pacer leads within right atrium and right ventricle. FLP with total cholesterol 202, triglycerides 104, LDL 122, VLDL 21, HDL 59. Patient also with recent worsening dysuria with urinary retention, frequency secondary to complete uterovaginal prolapse. UA upon [facility] presentation not marked but recent facility prior to transition UA notable and UCx resulted >100,000 CFU Klebsiella therefore patient maintained on IV rocephin and transitioned at discharge to keflex. Discussed case with patient's urologist, Dr. Concepcion who agreed with continuation of Marcial catheter upon discharge, plan follow-up in her office in 1 week, required repeat evaluation per cardiology prior to consideration of surgical intervention which had been arranged for this coming October. Patient d ischarged to home in stable condition, continued marcial, planned completion of abx therapy, continued daily lasix with PCP, Urology and Cardiology follow-up. Plan discussed with patient and family at length. DAY OF DISCHARGE PROGRESS NOTE: Subjective: Patient without acute event overnight per self and nursing report. Patient notes feeling improved, less dyspnea and resolved edema. Also lower pelvic discomfort improved with marcial and UTI treatment. Patient denies fever, chills, nausea, emesis, abdominal pain, chest pain or dyspnea. Patient agreeable to discharge to home with home health request per discussion with CM/SW. Patient will be discharged with follow-up with primary care physician kathleen guerrero 3-5 days in addition to Cardiology and Urology. Objective: T 98.5, heart rate 83, BP 135/77, respiratory rate 18, 97% on room air Physical Examination: General: awake, alert, oriented x 3 and cooperative, seated upright in the PCU bed in no apparent distress, notes feeling improved, less edema and dyspnea, more alert and resolved prior malaise. Skin: normal color, turgor, no icterus, cyanosis. HEENT: AT/NC, EOMI, PERRLA, MMM. Lungs: Improved BS, improved effort, resolved rales bases, no ronchi or wheezing. Heart: Regular rate and rhythm; no gallop, rub audible. Abdomen: soft, NTTP, ND, normal BS. : Marcial catheter in place, clear urine draining. Extremities: no cyanosis or clubbing, resolved BL LE edema. Neurological: patient awake, alert, oriented as noted; cognitive function in tact; pupils equally reactive to light and accomodation; cranial nerves II-XII grossly normal, moving all 4 extremities, no focal deficits, strength improved, mildly globally decreased. Psychiatric: affect appears improved, more normal, smiling, no acute evidence of depressive or anxiety feelings. Assessment and Plan: Please see hospital summary above. ABG / Lab / Microbiology Data Result Diagrams: 09/29/20 10:40 09/29/20 10:40 Laboratory: Laboratory Results - last 24 hr 09/28/20 09/29/20 09/29/20 14:48 10:40 10:40 WBC 5.3 RBC 4.07 L Hgb 12.5 Hct 37.9 MCV 93.1 MCH 30.7 MCHC 33.0 RDW Std Deviation 46.6 H RDW Coeff of [place] 13.5 Plt Count 201 MPV 11.0 Immature Gran % (Auto) 0.200 Neut % (Auto) 66.3 Lymph % (Auto) 19.4 [place] % (Auto) 10.2 H Eos % (Auto) 3.0 Baso % (Auto) 0.9 Absolute Neuts (auto) 3.5 Absolute Lymphs (auto) 1.02 Nucleated RBC % 0 Sodium 140 140 Potassium 3.7 3.2 L Chloride 105 105 Carbon Dioxide 28.0 27.0 Anion Gap 7 8 BUN 17 18 Creatinine 0.76 1.00 Estim Creat Clear Calc 37.45 37.45 Est GFR (MDRD) Af Amer 93 68 Est GFR (MDRD) Non-Af 77 57 L BUN/Creatinine Ratio 22.3 H 18.1 Glucose 99 169 H Calcium 8.0 L 8.2 L D/C Instructions Discharge Diet: Low fat / Low cholesterol (Cardiac diet recommended, may liberalize to 2000 ml daily fluid [place]adwick.) Discharge Activity: Return to Normal Activity Weight Bearing Status: Weight bearing as tolerated Additional Activity Instructions: Please continue marcial catheter with care as taught during admission until re-evaluation with Dr. Concepcion given retention, frequency and recent UTI in setting of prolapse. Call your doctor if you observe: Fever of 101 or Higher, Inability to urinate (If any issues with marcial or not draining urine appropriately.), Inability to have a bowel movement, Shortness of breath, Fainting spells, Swelling in the ankles, Chest pain, Uncontrolled pain and - (Please call your home health administrator if weight gain above 5 lbs.) Please Follow Up With: Abelardo Slade When: Follow-up within 3-5 days to review admission, CHF exacerbation, UTI w/ urinary retention requiring marcial with planned Urology follow-up complicated by uterine prolapse. Meaningful Use Info Meaningful Use Diagnoses (Choose all that apply): CHF CHF LAUREL/ARB ordered at discharge?: Yes Documented LVEF (%): 35 Discharge Plan Admission Admit Date/Time: 09/28/20 03:00 Primary Reason for Your Visit: Acute Diastolic CHF exacerbation, Acute Klebsiella UTI, Urinary retention Attending Provider: Lorena Mendez Primary Care Provider: Abelardo Slade Instructions Patient Instructions: Heart Failure: Tracking Your Weight, Heart Failure: Making Changes to Your Diet, Taking Diuretics, ED Heart Failure, Congestive (CHF), ED Marcial Catheter, Care, ED Bladder Infection, Female (Adult) Additional Instructions / Restrictions: Given recent initiation routine lasix please have repeat basic metabolic panel to assess renal function at your follow-up with your primary care physician. Discharge Orders/Prescriptions Prescriptions: New furosemide 40 mg Tablet 40 mg PO DAILY 30 Days Qty: 30 RF: 0 potassium chloride [Klor-Con M20] 20 mEq Tablet,Er Particles/Crystals 40 meq PO DAILYCM 30 Days Qty: 30 RF: 0 cephalexin 500 mg capsule 500 mg PO Q8H 5 Days Qty: 15 RF: 0 Continued trazodone 50 mg tablet 50 mg PO DAILY RF: 0 aspirin 81 MG tablet,chewable 81 mg PO DAILY@0800 RF: 0 vitamin E (dl, acetate) 400 UNITS capsule 400 units PO DAILY RF: 0 Rafy-Mag 1 cap PO DAILY RF: 0 lisinopril 20 mg tablet 20 mg PO BID RF: 0 amlodipine 2.5 mg tablet 2.5 mg PO DAILY RF: 0 carvedilol 3.125 mg tablet 6.25 mg PO BID RF: 0 Discontinued furosemide [Lasix] 40 mg tablet 40 mg PO DAILY PRN (Reason: CHF, Edema) RF: 0 Referrals: Abelardo Slade MD [Primary Care Provider] - Disposition Disposition (needs filled in before D/C Order can be placed): Home Health Service Visit Charges Inpatient E&M: 17457 Disch Hosp
--- NOTE | 2020-09-29 12:06 | NURSING ---
catheter care instructions given along with how to change to leg bag. instructions given to patient & daughter. both state understanding.
--- NOTE | 2020-09-29 12:19 | PHA.DC.MC ---
Pharmacy Service has performed discharge medication reconciliation and counseling for this patient. 1. CEPHALEXIN 500MG PO Q8H 2. POTASSIUM CHLORIDE 40MEQ PO DAILYCM The patient's discharge medication list was reviewed for discrepancies and discrepancies were resolved. Home Medications Rafy-Mag 1 cap PO DAILY 01/06/17 aspirin 81 mg PO DAILY@0800 01/06/17 vitamin E (dl, acetate) 400 units PO DAILY 01/06/17 trazodone 50 mg tablet 50 mg PO DAILY 09/14/20 amlodipine 2.5 mg PO DAILY 09/28/20 carvedilol 6.25 mg PO BID 09/28/20 lisinopril 20 mg PO BID 09/28/20 cephalexin 500 mg PO Q8H 5 Days #15 cap 09/29/20 furosemide 40 mg PO DAILY 30 Days #30 tab 09/29/20 potassium chloride [Klor-Con M20] 40 meq PO DAILYCM 30 Days #30 tab 09/29/20 The patient was counseled on the following discharge medications and changes in medications for homegoing were reviewed. The Reason for Use, instructions for use, and potential side effects were reviewed for all new medications. The patient's questions regarding all of their medications were answered. The patient was able to verbally demonstrate an understanding of their discharge medications. Patient counseled by pharmacy technician per diemBen.
== END 2020-09-29 17:26 | disposition home health service (06) | DRG 293 ==
PROVIDERS: Admitting Provider Hospitalist; PCP Family Medicine; Visit Provider Family Medicine
DX: I11.0 Hypertensive heart disease with heart failure (principal); N81.3 Complete uterovaginal prolapse; I50.23 Acute on chronic systolic (congestive) heart failure; I25.10 Atherosclerotic heart disease of native coronary artery without angina pectoris; I48.0 Paroxysmal atrial fibrillation; R33.9 Retention of urine, unspecified; I27.20 Pulmonary hypertension, unspecified; N39.41 Urge incontinence; N30.90 Cystitis, unspecified without hematuria; E78.5 Hyperlipidemia, unspecified; D64.9 Anemia, unspecified; Z66 Do not resuscitate; Z79.899 Other long term (current) drug therapy; Z79.82 Long term (current) use of aspirin; Z95.0 Presence of cardiac pacemaker
CPT/HCPCS: 36415; 80048; 83735; 85025; 97162; 97166; 97530; 97535; J7040; A4216; J0696; J1940

== ENCOUNTER → 2020-10-01 09:12 | Outpatient (CLI) | payer OTHER, SELFPAY ==
[2020-10-01 08:42] VITALS: BMI 24.0
[2020-10-01 10:46] LABS: Anion Gap 4 (5-15); BUN 22 mg/dL (7-18); Calcium,Total 9.1 mg/dL (8.5-10.1); Chloride 102 mmol/L (98-107); Creatinine, Serum 0.92 mg/dL (0.55-1.02); EST Glomerular Filtration Rate 62 mL/min (>60); Est Glom Filt Rate - Afr Amer 75 mL/min (>60); Glucose 97 mg/dL (74-106); Potassium 4.3 mmol/L (3.5-5.1); Sodium Level 138 mmol/L (136-145)
== END ==
PROVIDERS: PCP Family Medicine; Referring Provider Physician Assistant Medical; Visit Provider Physician Assistant Medical
DX: Z79.899 Other long term (current) drug therapy (principal)
CPT/HCPCS: 36415; 80048

== ENCOUNTER 2020-10-10 18:36 | Emergency (ER) | payer OTHER, SELFPAY ==
[2020-10-01 08:42] VITALS: BMI 24.0
--- NOTE | 2020-10-10 18:37 | ED.RN ---
[id number]- DILLON FOR UPDATES
[2020-10-10 18:38] VITALS: BP 142/70; PULSE 80; RESP 17; TEMP 36.3; O2SAT 97; BMI 24.0
[2020-10-10 18:39] VITALS: BP 142/70; PULSE 80; RESP 17; TEMP 36.3; O2SAT 97
--- NOTE | 2020-10-10 20:08 | EKG12_ITS ---
Test Reason : N/V Blood Pressure : / mmHG Vent. Rate : 075 BPM Atrial Rate : 075 BPM P-R Int : 138 ms QRS Dur : 144 ms QT Int : 448 ms P-R-T Axes : 108 -64 135 degrees QTc Int : 500 ms Sinus rhythm with marked sinus arrhythmia with occasional ventricular-paced complexes Left axis deviation Left bundle branch block Abnormal ECG Confirmed by MAHIN CAPELLAN, COLLIN ([id number]), continuity editor NAVJOT KHOURY ([id number]) on 10/13/2020 9:17:32 AM Referred By: MOOSE Confirmed By:COLLIN STOCKTON MD
--- NOTE | 2020-10-10 20:12 | EDS_ITS ---
HPI History of Present Illness Chief Complaint: Nausea/Vomiting Informant: patient and family Onset/Context/Timing Onset: Days Timing: Intermittent Current Severity: Mild Maximum Severity: Mild Narrative Narrative: 80-year-old female recent admission for obstructive urinary retention. On Monday of this past week she is to start feeling poorly with associated nausea and vomiting. She does have Harvey catheter in and is scheduled to have a hysterectomy and possibly some type of bladder lift procedure. She denies any fever or chills. No diarrhea. No melena. She denies any chest pain or shortness of breath. Prior similar symptoms: No Recent Illness/Hospitalization: Yes [facility] Medical History Atherosclerotic heart disease of [place] coronary artery without angina pectoris CHF (congestive heart failure) Complete uterovaginal prolapse Diastolic dysfunction Essential hypertension H/O sinus bradycardia h/o spinal stenosis LBBB (left bundle branch block) LV dysfunction Mild pulmonary hypertension Nonrheumatic mitral valve insufficiency Nonsustained ventricular tachycardia Paroxysmal supraventricular tachycardia Presence of cardiac pacemaker (~12/29/16) SOB (shortness of breath) Tachycardia Urge incontinence Home Medications Rafy-Mag 1 cap PO DAILY 01/06/17 [History Last Taken 01/06/17] aspirin 81 mg PO DAILY@0800 01/06/17 [History Last Taken 01/05/17] vitamin E (dl, acetate) 400 units PO DAILY 01/06/17 [History Last Taken 01/05/17] amlodipine 2.5 mg PO DAILY 09/28/20 [History Last Taken Unknown] lisinopril 20 mg PO BID 09/28/20 [History Last Taken Unknown] cephalexin 500 mg PO Q8H 5 Days #15 cap 09/29/20 [Rx Last Taken Unknown] carvedilol 6.25 mg tablet 6.25 mg PO BID #180 tab 10/01/20 [Rx Last Taken Unknown] furosemide 40 mg tablet 40 mg PO DAILY #90 tab 10/01/20 [Rx Last Taken Unknown] potassium chloride 20 mEq tablet,extended release(part/cryst) 40 meq PO DAILYCM #90 tab 10/01/20 [Rx Last Taken Unknown] cephalexin 500 mg PO Q6H 10 Days #40 cap 10/10/20 [Rx Last Taken Unknown] trazodone 50 mg PO QHS 10/10/20 [History Last Taken Unknown] Allergy/AdvReac Type Severity Reaction Status Date / Time No Known Allergies Allergy Verified 10/10/20 18:39 Family History Father CAD (coronary artery disease) Mother CAD (coronary artery disease) Surgical History History of bilateral cataract extraction History of cystoscopy Previous back surgery S/P appendectomy S/P cholecystectomy Social History Smoking Status: Never smoker alcohol intake: never substance use type: does not use what type of physical activity do you participate in: none additional social history: ROS ROS ED ROS Narrative Nausea, vomiting and generalized weakness. Review of Systems ROS Unobtainable: Denies due to encephalopathy, due to endotracheal tube, due to mental condition or due to mental status Constitutional Constitutional ED: Denies chills or fever(s) Eyes Eyes: Denies change in vision ENT ENT ED: Denies ear pain or sore throat Cardiovascular Cardiovascular: Denies chest pain Respiratory/Chest Respiratory/Chest: Denies cough, dyspnea or sputum Gastrointestinal Gastrointestinal: Reports nausea and vomiting; Denies abdominal pain, constipation, diarrhea or melena Genitourinary Genitourinary ED: Denies dysuria or hematuria Musculoskeletal Musculoskeletal: Denies arthralgias or myalgias Integumentary Denies rash Neurologic Neurologic: Denies headache(s) Psychiatric Psychiatric: Denies depression Endocrine Endocrinology: Denies polyuria Allergic/Immunologic Allergic/Immunologic ED: Denies urticaria EXAM Physical Exam Narrative Exam Narrative: Older female accompanied by family. Vital signs are stable afebrile. She does not look septic or toxic. She is in no distress. HEENT exam unremarkable. Neck nontender. Lungs clear to auscultation bilaterally. Heart regular rhythm no murmur. Abdomen soft nontender normal bowel sounds no peritoneal signs. No signs of obstruction. Moving all 4 extremities. No bao a. Neurologically she is awake alert with no focal motor deficits. Const Vital Signs: 10/10/20 18:38 10/10/20 18:39 10/10/20 20:37 Temperature 97.4 F L 97.4 F L Temperature Source Temporal Temporal Pulse Rate 80 80 79 Respiratory Rate 17 17 16 Blood Pressure 142/70 H 142/70 H 150/76 H Blood Pressure Mean 94 94 100 Pulse Ox 97 97 98 Oxygen Delivery Method Room Air Room Air Room Air 10/10/20 20:39 Temperature 98 F Temperature Source Temporal Pulse Rate 79 Respiratory Rate 18 Blood Pressure 150/76 H Blood Pressure Mean 100 Pulse Ox 99 Oxygen Delivery Method Room Air Positive well nourished and well developed General Appearance ED: well developed HEENT Reports moist mucous membranes Negative for trauma or tenderness Eyes PERRL and EOMs intact bilaterally Neck no lymphadenopathy and supple Chest Wall inspection of chest normal Resp normal respiratory effort and clear to auscultation bilaterally Auscultation: Negative for rhonchi or wheezes Cardio regular rate, regular rhythm and no murmurs GI normal to inspection, nondistended, normoactive bowel sounds, non-tender, non- distended and no masses Inspection: Negative for abdominal distention Auscultation: normoactive bowel sounds; Negative for hyperactive bowel sounds Palpation: soft; Negative for tender Back/Spine no CVA tenderness Extremity normal to inspection General Extremety ED: Negative for edema or tenderness General Extremity: Negative for edema Neuro Sensorium / Orientation: alert Motor Exam: strength 5/5 throughout Psych mental status grossly normal Skin no rashes or lesions noted MDM MDM MDM Narrative Medical decision making narrative: Elderly female recent admission for urinary retention. Now having nausea and vomiting. She has a chronic indwelling Harvey catheter. Nothing specific on exam. She will be treated with IV fluids and IV Zofran for nausea. Screening labs chest x-ray and EKG are being obtained. Repeat exam at 10:45 PM patient is doing well. I went over all test results with the patient and her family member. They are comfortable with her being discharged home. They did refuse a Covid test. Clinically I do not think this is Covid. Should be started on antibiotic Keflex and first dose given to her here in the emergency department. Urine culture is being sent. She will follow-up with her primary care physician next several days. Return if worse. Lab Data Attestation: I reviewed the patient's lab results. Labs: Laboratory Results - last 24 hr 10/10/20 10/10/20 10/10/20 19:05 19:05 20:33 WBC 5.3 RBC 4.14 L Hgb 12.5 Hct 38.0 MCV 91.8 MCH 30.2 MCHC 32.9 RDW Std Deviation 43.9 RDW Coeff of [place] 13.1 Plt Count 207 MPV 10.8 Immature Gran % (Auto) 0.200 Neut % (Auto) 64.9 Lymph % (Auto) 21.9 [place] % (Auto) 8.6 Eos % (Auto) 3.6 Baso % (Auto) 0.8 Absolute Neuts (auto) 3.4 Absolute Lymphs (auto) 1.15 Nucleated RBC % 0 Sodium 135 L Potassium 3.9 Chloride 101 Carbon Dioxide 26.0 Anion Gap 8 BUN 27 H Creatinine 1.02 Estim Creat Clear Calc 36.72 Est GFR (MDRD) Af Amer 67 Est GFR (MDRD) Non-Af 55 L BUN/Creatinine Ratio 26.5 H Glucose 109 H Calcium 8.6 Total Bilirubin 0.40 Direct Bilirubin 0.14 AST 35 ALT 39 Alkaline Phosphatase 90 Troponin I < 0.015 Total Protein 6.5 Albumin 3.2 Globulin 3.3 Urine Color Yellow Urine Clarity Clear Urine pH 7.0 Ur Specific [place] 1.010 Urine Protein Negative Urine Glucose (UA) Normal Urine Ketones Negative Urine Occult Blood 50 H Urine Nitrite Positive H Urine Bilirubin Negative Urine Urobilinogen Normal Ur Leukocyte Esterase 500 H Urine RBC 0-5 SEEN Urine WBC 5-10 SEEN Ur Squamous Epith Cells 0 SEEN Urine Bacteria 1+ Urine Mucus 0 SEEN Radiography Chest X-Ray - ED: 1 View, Read by ED Physician, Read by Radiologist, Normal, Lungs, Mediastinum, Bony Structures and Cardiomegaly Diagnostic Testing: Radiology Impression Chest X-Ray 10/10/20 20:30 IMPRESSION: Cardiomegaly. Probable COPD. No acute chest disease. Electronically Signed: Tim Becerra MD at 21:15 EDT , Service support , EKG Initial EKG: Attestation: I personally reviewed and interpreted this EKG as follows: Interpretation: No Acute Injury Pattern and Atrial Flutter Comments: Sinus rhythm rate of 75 with occasional areas of atrial flutter. Prior: No Prior Discharge Plan Triage Chief Complaint: Nausea/Vomiting ED Provider: Gaurav Cotton Dx/Rx/DC Orders Clinical Impression: Urinary tract infection, Weakness Instructions: ED Bladder Infection, Female (Adult), ED Vomiting (Adult) Prescriptions: New cephalexin 500 mg capsule 500 mg PO Q6H 10 Days Qty: 40 RF: 0 No Action carvedilol 6.25 mg tablet 6.25 mg PO BID Qty: 180 RF: 3 furosemide 40 mg tablet 40 mg PO DAILY Qty: 90 RF: 3 potassium chloride [Klor-Con M20] 20 mEq tablet,ER particles/crystals 40 meq PO DAILYCM Qty: 90 RF: 3 aspirin 81 MG tablet,chewable 81 mg PO DAILY@0800 RF: 0 vitamin E (dl, acetate) 400 UNITS capsule 400 units PO DAILY RF: 0 Rafy-Mag 1 cap PO DAILY RF: 0 lisinopril 20 mg tablet 20 mg PO BID RF: 0 amlodipine 2.5 mg tablet 2.5 mg PO DAILY RF: 0 cephalexin 500 mg capsule 500 mg PO Q8H 5 Days Qty: 15 RF: 0 trazodone 50 mg tablet 50 mg PO QHS RF: 0 Primary Care Provider: Abelardo Slade Referrals: Abelardo Slade MD [Primary Care Provider] - 3-5 Days Activity Restrictions/Additional Instructions: Plenty of fluids and rest Keflex 4 times a day. Zofran as needed for nausea. You have a urinary tract infection. I sent a urine culture. Follow-up with your primary care physician you can check those results. Return if you are feeling worse. Disposition Disposition: Home, self care
[2020-10-10] MEDS: 0.9% Normal Saline 1,000 ML 1000 ML IV (20:23)
[2020-10-10] MEDS: Ondansetron 4 MG/2 ML Vial IV (20:24)
--- NOTE | 2020-10-10 20:30 | RAD_ITS ---
STUDY: X-RAY CHEST REASON FOR EXAM: Female, 80 years old. weakness TECHNIQUE: Single AP portable view of the chest. COMPARISON: 01/06/2017 FINDINGS: Mild hyperexpansion of the lungs. No infiltrates. No effusions. There is no demonstrated pleural abnormality. There is severe cardiac enlargement. Pacemaker is seen with leads terminating in the right atrium and right ventricle. Normal mediastinum and [place]. Normal visualized pulmonary arteries. Normal visualized aortic arch and descending thoracic aorta. Normal visualized thoracic spine. Normal visualized ribs, clavicles, and shoulders. There is no demonstrated abnormality of the visualized soft tissue structures of the upper abdomen. RAD/Chest 1 View (Portable) IMPRESSION: Cardiomegaly. Probable COPD. No acute chest disease. Electronically Signed: Tim Becerra MD at 21:15 EDT , Service support ,
--- NOTE | 2020-10-10 20:36 | ED.RN ---
Pt and pt daughter refusing COVID test. Education provided. Pt still refusing. notified.
[2020-10-10 20:37] VITALS: BP 150/76; PULSE 79; RESP 16; O2SAT 98
[2020-10-10 20:39] VITALS: BP 150/76; PULSE 79; RESP 18; TEMP 36.6; O2SAT 99
[2020-10-10 20:43] LABS: Mucous, Urine 0 SEEN /hpf (<or=2+); Squamous Epithelial Cells - UA 0 SEEN /hpf (5-10)
[2020-10-10 20:48] LABS: Absolute Lymphocyte Count 1.15 X10^3/uL (0.83-4.51); Absolute Neutrophil Count 3.4 X10^3/uL (2.0-7.7); Basophil# 0.04 X10^3/uL; Basophil% 0.8 % (0-1); Eosinophil# 0.19 X10^3/uL; Eosinophils% 3.6 % (0-5); Hemoglobin 12.5 g/dL (12.0-15.0); Lymphocyte # 1.15 X10^3/ul (0.83-4.51); Lymphocyte % 21.9 % (19-41); Mean Corp Hgb Conc 32.9 g/dL (32-36); Mean Corpuscular Hgb 30.2 pg (27.0-32.0); Mean Corpuscular Volume 91.8 fL (81-99); Mean Platelet Vol. 10.8 fl (6.2-12.0); Monocyte# 0.45 X10^3/uL; Monocyte% 8.6 % (0-10); NRBC Flagged by Analyzer 0 % (0-5); Neutrophil # 3.41 X10^3/uL (2.7-7.7); Neutrophil % 64.9 % (47-70); Platelet Count 207 K/mm3 (150-450); RBC Distribution Width CV 13.1 % (11.6-14.6); RBC Distribution Width SD 43.9 fl (35.1-43.9); Red Blood Count 4.14 M/mm3 (4.2-5.4); White Blood Count 5.3 K/mm3 (4.4-11.0)
[2020-10-10 21:07] LABS: Color, Urine Yellow (Yellow); Glucose, Dipstick Normal (Normal); Ketone-Dipstick Negative (Negative); Leukocyte Esterase-Dipstick 500 /ul (Negative); Nitrite-Dipstick Positive (Negative); Occult Blood-Urine 50 /ul (Negative); Protein-Dipstick Negative (Negative); Urine Bilirubin Dipstick Negative (Negative); Urine Clarity Clear (Clear); Urine Urobilinogen Normal (Normal)
[2020-10-10 21:17] LABS: Red Blood Cells-Urine 0-5 SEEN /hpf (0-5); White Blood Cells 5-10 SEEN /hpf (0-5)
[2020-10-10 21:19] LABS: Bacteria 1+ /hpf (None Seen)
[2020-10-10 21:22] LABS: AST(SGOT) 35 U/L (15-37); Alanine Aminotransfer ALT/SGPT 39 U/L (13-56); Albumin, Serum 3.2 g/dL (3.2-5.0); Alkaline Phosphatase 90 U/L (45-117); Anion Gap 8 (5-15); BUN 27 mg/dL (7-18); BUN/Creat Ratio 26.5 RATIO (10-20); Bilirubin, Direct 0.14 mg/dL (0.00-0.30); Calcium,Total 8.6 mg/dL (8.5-10.1); Chloride 101 mmol/L (98-107); Creatinine, Serum 1.02 mg/dL (0.55-1.02); EST Glomerular Filtration Rate 55 mL/min (>60); Est Glom Filt Rate - Afr Amer 67 mL/min (>60); Estimated Creatinine Clearance 36.72 ml/min; Globulin 3.3 g/dL (2.2-4.2); Glucose 109 mg/dL (74-106); Potassium 3.9 mmol/L (3.5-5.1); Protein, Total 6.5 g/dL (6.4-8.2); Sodium Level 135 mmol/L (136-145)
[2020-10-10] MEDS: Cephalexin 250 MG Capsule 500 MG PO (22:55)
[2020-10-10 23:07] VITALS: BP 150/71; PULSE 75; RESP 15; O2SAT 98
== END 2020-10-10 23:08 | disposition home or self-care (01) ==
PROVIDERS: Emergency Provider Emergency Medicine; PCP Family Medicine
DX: N39.0 Urinary tract infection, site not specified (principal); R53.1 Weakness; I25.10 Atherosclerotic heart disease of native coronary artery without angina pectoris; I11.0 Hypertensive heart disease with heart failure; I50.9 Heart failure, unspecified; Z79.899 Other long term (current) drug therapy
CPT/HCPCS: 71045; 80048; 80076; 81001; 84484; 85025; 87077; 87086; 87088; 87186; 93005; 96361; 96374; 99283; J7030; A4216; J2405

== ENCOUNTER 2020-10-30 05:28 | Day surgery (SDC) | payer SELFPAY, OTHER ==
[2020-09-14 13:48] VITALS: BMI 24.9
[2020-10-15 09:57] VITALS: BMI 24.7
--- NOTE | 2020-10-23 16:25 | NURSING ---
pt and pt's dgtr-in-law planned to have COVID preop test completed in [place]. Dgtr-in-law phoned back and states pt unable to have test completed in [place] as planned. COVID test to be completed morning of surgery; pt and pt's dgtr-in-law aware if test is postive, surgery will be cancelled. Agreeable to that plan.
[2020-10-30] VITALS (14 sets, daily range): BP systolic 110–135; BP diastolic 56–70; PULSE 60–74; RESP 15–18; TEMP 36.1–36.6; O2SAT 93–100; BMI 26.4
[2020-10-30] MEDS: dexAMETHasone 10 MG/ML Vial 8 MG IV ×2 (06:15→06:40)
[2020-10-30] MEDS: Lactated Ringers 1,000 ML 40 ML IV (06:16)
[2020-10-30] MEDS: Acetaminophen 500 MG Tablet 1000 MG PO ×3 (06:36→17:27)
[2020-10-30] MEDS: Celecoxib 200 MG Capsule 400 MG PO (06:38)
[2020-10-30] MEDS: Gabapentin 600 MG Tablet PO (06:38)
[2020-10-30] MEDS: Scopolamine 1mg/72hr Patch 1 PATCH TD (06:39)
[2020-10-30 07:00] LABS: Bedside Glucose 85 mg/dL (70-110)
--- NOTE | 2020-10-30 07:23 | HP.PCM.OB_ITS ---
[facility] - General General Date of Admission: 01/06/17 HPI Narrative DANI OROZCO, is a 80 F who presents For total vaginal hysterectomy, possible bilateral salpingo-oophorectomy for prolapse [facility] Medical History (Updated 10/23/20 @ 13:29 by Myra Robins) Ambulates with cane Arthritis Atherosclerotic heart disease of [place] coronary artery without angina pectoris Cardiology follow-up encounter CHF (congestive heart failure) Complete uterovaginal prolapse Constipation Diastolic dysfunction Difficulty swallowing Essential hypertension H/O sinus bradycardia h/o spinal stenosis History of atrial fibrillation History of CHF (congestive heart failure) History of edema History of pacemaker History of stress test Indwelling urethral catheter present LBBB (left bundle branch block) LV dysfunction Mild pulmonary hypertension Non-smoker Nonrheumatic mitral valve insufficiency Nonsustained ventricular tachycardia Paroxysmal supraventricular tachycardia Presence of cardiac pacemaker (~12/29/16) Shortness of breath on exertion SOB (shortness of breath) Tachycardia Urge incontinence Wears dentures Wears glasses Home Medications Rafy-Mag 1 cap PO DAILY 01/06/17 [History Last Taken 10/29/20] aspirin 81 mg PO DAILY@0800 01/06/17 [History Last Taken 10/29/20] vitamin E (dl, acetate) 400 units PO DAILY 01/06/17 [History Last Taken 10/29/20] amlodipine 2.5 mg PO QHS 09/28/20 [History Last Taken 10/29/20] lisinopril 20 mg PO BID 09/28/20 [History Last Taken 10/30/20] carvedilol 6.25 mg tablet 6.25 mg PO BID #180 tab 10/01/20 [Rx Last Taken 10/30/20] trazodone 50 mg PO QHS 10/10/20 [History Last Taken 10/29/20] furosemide 40 mg PO DAILY 10/23/20 [History Last Taken 10/29/20] magnesium hydroxide [Milk of Magnesia] 5 ml PO LUNCH 10/23/20 [History Last Taken 10/29/20] potassium chloride [Klor-Con M20] 40 meq PO DAILYCM 10/23/20 [History Last Taken 10/29/20] Allergy/AdvReac Type Severity Reaction Status Date / Time No Known Allergies Allergy Verified 10/15/20 09:56 Family History Father CAD (coronary artery disease) Mother CAD (coronary artery disease) Surgical History (Updated 10/23/20 @ 13:29 by Myra Robins) History of bilateral cataract extraction History of cardiac catheterization History of cystoscopy Previous back surgery S/P appendectomy S/P cholecystectomy Social History Smoking Status: Never smoker alcohol intake: never substance use type: does not use what type of physical activity do you participate in: none additional social history: History 6 Elective abortions Hx Para 6 Spontaneous abortions Hx # Term Pregnancies Ectopic pregnancies Hx # Pregnancies Multiple births # of living children Past Pregnancies Del. Date Name GA/Weeks Outcome Route Bth Weight Infant Gen Labor Lgth Anesthesia Del Locatn Provider FOB Unknown Alejandra Unknown Marko Unknown Summer Unknown Bhupinder Unknown Hood Unknown Lori ALVAREZ Eyes Eyes: Reports systems reviewed and no addt'l complaints, except as documented ENT HEENT: Reports systems reviewed and no addt'l complaints, except as documented Cardiovascular Cardiovascular: Reports systems reviewed and no addt'l complaints, except as documented Respiratory/Chest Respiratory/Chest: Reports systems reviewed and no addt'l complaints, except as documented Gastrointestinal Gastrointestinal: Reports systems reviewed and no addt'l complaints, except as documented Genitourinary Genitourinary: Reports systems reviewed and no addt'l complaints, except as documented Musculoskeletal Musculoskeletal: Reports systems reviewed and no addt'l complaints, except as documented Integumentary Integumentary: Reports systems reviewed and no addt'l complaints, except as documented Neurologic Neurologic: Reports systems reviewed and no addt'l complaints, except as documented Psychiatric Psychiatric: Reports systems reviewed and no addt'l complaints, except as documented Endocrine Endocrinology: Reports systems reviewed and no addt'l complaints, except as documented Hematologic/Lymphatic Hematologic/Lymphatic: Reports systems reviewed and no addt'l complaints, except as documented Allergic/Immunologic Allergic/Immunologic: Reports systems reviewed and no addt'l complaints, except as documented Vital Signs Vital Signs Vital Signs: 10/30/20 06:28 Temperature 97.9 F Temperature Source Temporal Pulse Rate 60 Respiratory Rate 18 Respiratory Pattern Normal Blood Pressure 121/70 H Blood Pressure Mean 87 Blood Pressure Source Monitor Blood Pressure Position Semi-Fowlers Blood Pressure Location Left Arm Pulse Ox 100 Oxygen Delivery Method Room Air Weight Weight: 144 lb 6.444 oz Body Mass Index (BMI) 26.4 Physical Exam Const alert, oriented x3, no apparent distress, average body habitus, healthy appearing and well nourished HEENT normocephalic and moist oral mucous membranes Head and Scalp: atraumatic Eyes PERRL and EOMs intact bilaterally Neck full ROM Resp normal respiratory effort, no retractions and no use of accessory muscles Cardio regular rate and regular rhythm GI soft to palpation, non-tender and non-distended Extremity normal to inspection and full ROM Skin no rashes or lesions noted Neuro no focal motor deficits and no sensory deficits noted Psych mental status grossly normal, affect normal, speech normal and activity/motor be havior normal Labs Labs Labs: Blood Type O POSITIVE Antibody Screen NEGATIVE Hct 38.0 % (37-47) Hgb 12.5 g/dL (12.0-15.0) Assessment & Plan (1) Complete uterovaginal prolapse: PLAN: Patient presents for total vaginal hysterectomy, possible bilateral salpingo-oophorectomy for pelvic organ prolapse No changes to medical or surgical history since last visit Review of systems performed in the office and is negative Patient received medical clearance from cardiology and PCP The risks of the procedure were reviewed in length with the patient at the previous visit. Patient denies further questions regarding risks and benefits of surgery. Consent form signed in the office
[2020-10-30] MEDS: Cefazolin 2 GM in 0.9% Normal Saline 100 ML IV (07:29)
--- NOTE | 2020-10-30 07:30 | HYST_PTH ---
PATIENT: DANI OROZCO [place] [facility] [id number] AGE/SX: 80/F ROOM: RE10/30/[address]: Dr. Tasha Lutz MD : 1940 BED: DIS: 10/31/2020 SPEC #: [id number] RECD: 10/30/20 10:07 STATUS: BLACK CROWELL #: [id number] CABRERA: 10/30/20 07:[address]: Tasha Lutz DEPT: SURGICAL PATHOLOGY RECD BY: Grecia Davenport ENTERED: 10/30/20 11:12 SP TYPE: HYSTERECT OTHR DR: MD Dr. Abelardo Lombardo MD Tissues: Uterus, NOS Procedures: Surgery Specimen Level V HEADER OPERATION: ERAS, vaginal hysterectomy PRE-OP DIAGNOSIS: Complete uterovaginal prolapse TISSUE SUBMITTED: Uterus and mucosal tissue MICROSCOPIC DIAGNOSIS Uterus and mucosal tissue, vaginal hysterectomy: Cervix - focal ulceration, acute and chronic inflammation, granulation tissue reaction and reactive epithelial changes. - Chronic cystic cervicitis and squamous metaplasia. - Focal hyperkeratosis and parakeratosis. Endometrium - cystic atrophic endometrium. Myometrium - no pathologic diagnosis. Mucosal tissue - fragments of squamous mucosa with reactive epithelial changes. SJ:rg 11/02/2020 COMMENT Case has been reviewed in consultation with Dr. Mata who concurs with the above diagnosis. IDC:AM MICROSCOPIC DESCRIPTION Slides are reviewed. GROSS DESCRIPTION Received in fixative is one container labeled with the patient's name and designated uterus and mucosal tissue. The specimen consists of a hysterectomy specimen consisting of uterus with cervix and detached pieces of mucosal tissue. The uterus with cervix weighs 82 gm and measures 8 x 4.5 x 3 cm. The serosal surface is alvarenga, glistening. The ectocervical mucosa is unremarkable. The external os is oval in contour. The endocervical canal measures up to 3.5 cm in length. The endocervical mucosa is alvarenga, glistening and unremarkable. The triangular endometrial cavity measures 3.5 cm in length and up to 2 cm in width. The endometrium is alvarenga, glistening without any mass lesion and measures 0.1 cm in thickness. Sections of the uterine wall do not reveal any mass lesion and measures 1.5 cm in thickness. Also present in the container are multiple variable sized pieces of alvarenga mucosal tissue measuring in aggregate 6 x 5 x 0.6 cm. No mucosal lesion is identified. A few instrumentation davis are noted. Research Quality Assurance Analyst sections are submitted in seven cassettes as follows: 1 - anterior cervix, 2 - posterior cervix, 3 & 4 - anterior uterine wall, 5 & 6 - posterior uterine wall, 7 - mucosal tissue. / TENA:kirk 10/30/20 TC:5 CPT: 15639
--- NOTE | 2020-10-30 07:42 | DCINST_ITS ---
Discharge Instructions Diet Discharge Diet: No restrictions Activity Discharge Activity: May Not Drive (while taking narcotic pain medications.) and May Shower May resume sexual activity in: 8 weeks (until cleared by physician) Dressing / Incision Call your doctor if your incision/area has: Continuous Slow Oozing and Foul Smelling Discharge Call your doctor if you observe: Fever of 101 or Higher, Using more than one pad per hour, Shortness of breath, Dizziness, Chest pain and Uncontrolled pain Follow Up Care Please Follow Up With: Tasha Lutz MD When: 2 weeks Test Results: Test results from this visit will be discussed in further detail at your follow-up appointment, if applicable. Discharge Plan Admission Primary Reason for Your Visit: Hysterectomy Attending Provider: Tasha Lutz Primary Care Provider: Abelardo Slade Consulting Providers: Marley Concepcion Instructions Patient Instructions: Caring for Yourself After Hysterectomy, Vaginal Hysterectomy Discharge Orders/Prescriptions Prescriptions: No Action carvedilol 6.25 mg tablet 6.25 mg PO BID Qty: 180 RF: 3 aspirin 81 MG tablet,chewable 81 mg PO DAILY@0800 RF: 0 vitamin E (dl, acetate) 400 UNITS capsule 400 units PO DAILY RF: 0 Rafy-Mag 1 cap PO DAILY RF: 0 magnesium hydroxide [Milk of Magnesia] 400 mg/5 mL Suspension 5 ml PO LUNCH RF: 0 furosemide 40 mg tablet 40 mg PO DAILY RF: 0 potassium chloride [Klor-Con M20] 20 mEq tablet,ER particles/crystals 40 meq PO DAILYCM RF: 0 lisinopril 20 mg tablet 20 mg PO BID RF: 0 amlodipine 2.5 mg tablet 2.5 mg PO QHS RF: 0 trazodone 50 mg tablet 50 mg PO QHS RF: 0 Other Ambulatory Orders: COVID 19 AG RAPID (RN COLLECT) (Routine) Timeframe: 20201030 Facility: [facility] - Location: Laboratory Ordered By: Dr. Juan F Reed Magnesium (Routine) Timeframe: 20201030 Facility: [facility] - Location: Laboratory Ordered By: Dr. Juan F Reed Type & Screen - PAT ONLY (Routine) Timeframe: 20201030 Facility: [facility] - Location: Laboratory Ordered By: Dr. Tasha Lutz Referrals / Follow Up: Abelardo Slade MD [Primary Care Provider] -
--- NOTE | 2020-10-30 07:45 | OP.PCM_ITS ---
Problems Associated Problem List Diagnoses (1) Complete uterovaginal prolapse: Report of Operation Date of Procedure: 10/30/20 Pre-Operative Diagnosis: Pelvic organ prolapse Post-Operative Diagnosis: Same Surgery/Procedure Performed:: Total vaginal hysterectomy Description of Surgical Findings:: Complete procidentia. Normal-appearing cervix. Normal-appearing tubes and ovaries bilaterally coffee maker servicer: Gaurav Alexander Type of Anesthesia: General Special Medications: Ancef 2 g Specimen's removed: Uterus, cervix Drains: Harvey Estimated Blood Loss (mL): 50 Description of Procedure: Patient was taken to the operating room and was placed under general anesthesia was prepped and draped in normal sterile fashion in the dorsal lithotomy position. Preoperative antibiotics and SCDs and Harvey catheter was placed inside the bladder. Weighted speculum was placed in the vagina and the anterior and posterior lip of the cervix was grasped with 2 Dorian clamps and circumferentially injected with dilute vasopressin. A circumferential incision was made with a scalpel and the posterior cul-de-sac was entered into sharply and a longneck speculum was placed. The anterior cul-de-sac was also dissected down and entered into sharply and the uterosacral ligaments were clamped cut and suture ligated bilaterally followed by the cardinal ligaments which were Clamped cut and suture ligated bilaterally with 0 Vicryl. The uterus serially descended and progressive bites were taken bilaterally up to the level of the utero- ovarian ligament bilaterally which was clamped transected and double ligated with 0 Vicryl suture and 0 Vicryl free tie. Bilateral fallopian tubes and ovaries were well visualized and noted be within normal limits. As per previous discussion with the patient, these were left in situ. Excellent hemostasis was noted. Posterior peritoneum and the vagina were closed with [id number] 0 Vicryl pop offs including the posterior and anterior peritoneum in the reappro ximation. Excellent hemostasis was noted. All instruments removed from the vagina clear urine was noted at the end of the procedure and counts were correct. next dr clayton proceeded with her portion of the procedure. Complications None apparent Admit VTE Documentation VTE Present on Admission: No VTE Mechan Device Prophylaxis: SCD's VTE Pharm Prophylaxis ordered?: Yes Procedures Urinary/Genital [id number]: [id number] TVH <250 gr uterus
[2020-10-30] MEDS: Vasopressin 20 UNITS/ML Vial (10:00)
--- NOTE | 2020-10-30 11:03 | PCM.OPRPT ---
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: Report of Operation Date of Procedure: 10/30/20 Pre-Operative Diagnosis: Complete uterovaginal prolapse, stress urinary incontinence Post-Operative Diagnosis: Same Surgery/Procedure Performed:: Colpocleisis, mid urethral sling insertion, cystoscopy with bilateral ureteral catheterization Surgeon: Marley Concepcion fruit trimmer: Gaurav Type of Anesthesia: General Specimen's removed: None Estimated Blood Loss (mL): 50 cc Description of Procedure: The patient is an 80-year-old female with significant incomplete uterovaginal prolapse with urinary retention who presents for surgical intervention today. Informed consent was obtained. The patient was taken to the operating room and placed on the operating room table. Anesthesia monitored the head, neck, airway, IV access and vital signs throughout the case. Once anesthesia was appropriately ministered the patient was placed into dorsal lithotomy in Trendelenburg position. A Harvey catheter was inserted and the bladder was drained. Dr. Lutz proceeded with vaginal hysterectomy and closure of the cuff line. At this time I injected the vaginal mucosa in the submucosal area for hydrostatic dissection and hemostatic control. Both the anterior and posterior vaginal wall were removed. The cuff line was left intact. The posterior and anterior peritoneal tissues were then brought together in systematic fashion using 2-0 PDS in pursestring technique. The mucosa left at the cuff line was made into a tubular form with a channel of mucosa on either side of the vagina. A PDS was used approximately every centimeter in length until the entire vagina was closed and the mucosa was brought together with 2-0 Vicryl with running interlocking technique. The Harvey catheter was removed and a cystourethroscopy was then performed revealing no injury to the bladder or urethral mucosa. Bilateral ureteral orifices were located close to the bladder neck on the area of the trigone. Each orifice was intubated with a whistle-tip catheter. On initial insertion there was some J hooking to the ureters but both ureters allowed passage of the whistle-tip to 20 cm and urine was seen exuding from the catheter. At this time the cystoscope was removed and the Harvey catheter was reinserted. The mid urethra was identified and injected submucosally with vasopressin. A 1.5 cm vertical midline incision was made over the mid urethra. Bilateral dissection was performed on either side of the urethra with care being taken to avoid entrance into the urethra or the vaginal mucosa. At this time the trochars were used to pass the [place] tines into the obturator complexes bilaterally. The sling lay flat against the urethra without tension. The tensioning suture was cut. The midline incision was closed using running interlocking 2-0 Vicryl. At this time another cystoscopy was performed through the urethra and there was no injury to the urethra or the bladder identified. The cystoscope was removed, the Harvey catheter was replaced, and the patient was awakened and taken to the recovery room in good condition. There were no complications during this procedure. Grafts/Implants Used: Altis mid urethral sling Complications None Admit VTE Documentation VTE Present on Admission: Yes VTE Mechan Device Prophylaxis: SCD's VTE Pharm Prophylaxis ordered?: Yes
--- NOTE | 2020-10-30 11:12 | DCINST_ITS ---
Discharge Instructions Diet Discharge Diet: No restrictions Activity Discharge Activity: May Shower May resume sexual activity in: - (no sexual activity) Lifting Restrictions: 5 pounds Additional Activity Instructions:: No strenuous activity, no vacuuming, no lifting over 5 pounds, nothing per vagina, okay to shower, no tub bathing, swimming or hot tubs Dressing / Incision Call your doctor if your incision/area has: Continuous Slow Oozing and Foul Smelling Discharge Call your doctor if you observe: Fever of 101 or Higher, Inability to urinate, Using more than one pad per hour, Shortness of breath, Dizziness, Chest pain and Uncontrolled pain Follow Up Care Please Follow Up With: Tasha Lutz MD When: and Test Results: Test results from this visit will be discussed in further detail at your follow-up appointment, if applicable. Discharge Plan Admission Primary Reason for Your Visit: Hysterectomy Attending Provider: Tasha Lutz Primary Care Provider: Abelardo Slade Consulting Providers: Marley Concepcion Instructions Patient Instructions: Vaginal Hysterectomy, Caring for Yourself After Hysterectomy Discharge Orders/Prescriptions Prescriptions: No Action carvedilol 6.25 mg tablet 6.25 mg PO BID Qty: 180 RF: 3 aspirin 81 MG tablet,chewable 81 mg PO DAILY@0800 RF: 0 vitamin E (dl, acetate) 400 UNITS capsule 400 units PO DAILY RF: 0 Rafy-Mag 1 cap PO DAILY RF: 0 magnesium hydroxide [Milk of Magnesia] 400 mg/5 mL Suspension 5 ml PO LUNCH RF: 0 furosemide 40 mg tablet 40 mg PO DAILY RF: 0 potassium chloride [Klor-Con M20] 20 mEq tablet,ER particles/crystals 40 meq PO DAILYCM RF: 0 lisinopril 20 mg tablet 20 mg PO BID RF: 0 amlodipine 2.5 mg tablet 2.5 mg PO QHS RF: 0 trazodone 50 mg tablet 50 mg PO QHS RF: 0 Other Ambulatory Orders: COVID 19 AG RAPID (RN COLLECT) (Routine) Timeframe: 20201030 Facility: [facility] - Location: Laboratory Ordered By: Dr. Juan F Reed Magnesium (Routine) Timeframe: 20201030 Facility: [facility] - Location: Laboratory Ordered By: Dr. Juan F Reed Type & Screen - PAT ONLY (Routine) Timeframe: 20201030 Facility: [facility] - Location: Laboratory Ordered By: Dr. Tasha Lutz Referrals / Follow Up: Abelardo Slade MD [Primary Care Provider] -
[2020-10-30] MEDS: Docusate Sodium 100 MG Capsule PO (21:21)
[2020-10-30] MEDS: Carvedilol 6.25 MG Tablet PO (21:21)
[2020-10-30] MEDS: traZODone 50 MG Tablet PO (21:22)
[2020-10-30] MEDS: Cephalexin 500 MG Capsule PO (21:22)
[2020-10-31 00:50] VITALS: BP 113/64; PULSE 74; RESP 18; TEMP 36.4; O2SAT 97
[2020-10-31] MEDS: Acetaminophen 500 MG Tablet 1000 MG PO ×3 (00:52→12:04)
[2020-10-31 04:14] VITALS: BP 121/78; PULSE 63; RESP 18; TEMP 36.3; O2SAT 99
[2020-10-31] MEDS: 0.9% Saline Lock 10 ML Syringe IV (06:22)
--- NOTE | 2020-10-31 07:22 | PCM.PN.OB ---
Subjective Subjective Patient seen and examined. Reports doing well. Denies pain this morning. Had a small amount of bleeding, but none significant. Harvey catheter remains in place. Objective Data Objective Data Vital Signs: Vital Signs Temp Pulse Resp BP Pulse Ox 97.4 F L 63 18 121/78 H 99 10/31/20 04:14 10/31/20 04:14 10/31/20 04:14 10/31/20 04:14 10/31/20 04:14 Oxygen Flow Rate (L/min) 6 Oxygen Delivery Method Room Air Weight: 144 lb 6.444 oz Body Mass Index (BMI) 26.4 Intake & Output: Intake and Output for Last 24 Hours 10/29/20 10/30/20 10/31/20 23:59 23:59 23:59 Intake Total 888.67 / 1188.67 300 / 300 Output Total 700 / 1000 525 / 525 Balance 188.67 / 188.67 -225 / -225 Lab / Micro Data Micro: Microbiology 10/30/20 06:05 Interface Orders SARS-CoV-2 Antigen (Rapid) - Final ROS Constitutional Constitutional: Denies fever(s) Cardiovascular Cardiovascular: Denies chest pain, dyspnea or lightheadedness Gastrointestinal Gastrointestinal: Reports abdominal pain; Denies constipation or diarrhea Neurologic Neurologic: Denies dizziness or headache(s) Physical Exam Const alert, oriented x3, no apparent distress, average body habitus, healthy appearing and well nourished HEENT normocephalic Head and Scalp: atraumatic Eyes PERRL and EOMs intact bilaterally Neck full ROM Lymph Lymphatic: no lymphadenopathy noted Resp normal respiratory effort, no retractions and no use of accessory muscles Cardio regular rate GI soft to palpation, non-tender and non-distended Extremity normal to inspection and no clubbing, cyanosis or edema Skin no rashes or lesions noted Neuro no focal motor deficits and no sensory deficits noted Psych mental status grossly normal, affect normal and speech normal Assessment & Plan (1) S/P hysterectomy: PLAN: Postop day 1 status post total vaginal hysterectomy with colpocleisis and mid urethral sling Patient doing well this a.m. A.m. CBC pending Vital signs stable Harvey catheter to be removed this a.m.-we will ensure patient can void prior to discharge Anticipate DC to home later this afternoon
[2020-10-31 07:45] VITALS: BP 129/74; PULSE 60; RESP 16; TEMP 36.4; O2SAT 99
[2020-10-31 07:51] VITALS: O2SAT 94
[2020-10-31 07:52] LABS: Hematocrit 36.4 % (37-47); Mean Corpuscular Hgb 30.1 pg (27.0-32.0); Mean Corpuscular Volume 91.2 fL (81-99); Mean Platelet Vol. 10.2 fl (6.2-12.0); Platelet Count 180 K/mm3 (150-450); RBC Distribution Width CV 13.2 % (11.6-14.6); RBC Distribution Width SD 44.2 fl (35.1-43.9); Red Blood Count 3.99 M/mm3 (4.2-5.4); White Blood Count 10.1 K/mm3 (4.4-11.0)
--- NOTE | 2020-10-31 09:22 | PCM.PN.BLA ---
Progress Note Doing well, up eating breakfast. Pain is controlled. Excited to have done so well. Harvey out, has not yet voided. Physical Exam Const alert, oriented x3 and no apparent distress Resp normal respiratory effort, normal air movement, no retractions and no use of accessory muscles Effort and Inspection: able to speak in complete sentences GI soft to palpation, non-tender and non-distended Extremity no calf tenderness Skin no rashes or lesions noted, skin turgor normal, no jaundice, no petechiae and no mottling Assessment & Plan Assessment/Plan (1) Complete uterovaginal prolapse: PLAN: await trial of void results. home today. follow up in the office, patient to call for appt. 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
[2020-10-31] MEDS: Enoxaparin 40 MG/0.4 ML Syringe SC (09:54)
[2020-10-31] MEDS: Cephalexin 500 MG Capsule PO (09:54)
[2020-10-31] MEDS: Docusate Sodium 100 MG Capsule PO (09:54)
[2020-10-31] MEDS: Carvedilol 6.25 MG Tablet PO (09:55)
[2020-10-31] MEDS: Lisinopril 20 MG Tablet PO (09:56)
[2020-10-31 12:06] VITALS: BP 116/72; PULSE 60; RESP 16; TEMP 36.5; O2SAT 100
--- NOTE | 2020-10-31 14:43 | NURSING ---
Pt willing to attempt void-assisted to bathroom. Pt incontinent of small amount of urine and dribbled urine entire way to the toilet where she continued to void and missed hat. Assisted to ambulate short distance in hallway per pt request, returned to chair. Bladder scanned for 13ml PVR.
[2020-10-31 16:11] VITALS: BP 121/78; PULSE 60; RESP 16; TEMP 36.7; O2SAT 100
== END 2020-10-31 16:48 ==
LOC: SDC 05:31 → AC 05:32 → MS3 15:30
PROVIDERS: Urology; PCP Family Medicine; Referring Provider Obstetrics & Gynecology; Visit Provider Obstetrics & Gynecology
PROC: (CPT 58260; principal; 2020-10-30 07:10)
PROC: 0TJB8ZZ Inspection of Bladder, Via Natural or Artificial Opening Endoscopic (ICD-10-PCS; CPT 57288; 2020-10-30 07:10)
DX: N81.3 Complete uterovaginal prolapse (principal); N72 Inflammatory disease of cervix uteri; N88.0 Leukoplakia of cervix uteri; I25.10 Atherosclerotic heart disease of native coronary artery without angina pectoris; I11.0 Hypertensive heart disease with heart failure; I50.9 Heart failure, unspecified; I27.20 Pulmonary hypertension, unspecified; N39.3 Stress incontinence (female) (male); R33.9 Retention of urine, unspecified; I48.0 Paroxysmal atrial fibrillation; M19.90 Unspecified osteoarthritis, unspecified site; I47.1 Supraventricular tachycardia; Z79.82 Long term (current) use of aspirin; Z95.0 Presence of cardiac pacemaker; Z79.899 Other long term (current) drug therapy
CPT/HCPCS: 00940; 57120; 57288; 58260; 36415; 82962; 85027; 86850; 86900; 86901; 87426; 88307; J7120; A4216; C1758; J2405

== ENCOUNTER → 2021-11-01 | Outpatient (CLI) | payer SELFPAY, OTHER ==
--- NOTE | 2021-11-01 10:06 | ECHOCS_ITS ---
Reason For Study: CM Procedure This was a 2D Doppler, Color Flow transthoracic echocardiogram. The study was technically difficult. Contrast injection was performed. Exam performed in department. Left Ventricle Normal LV size. Mild segmental systolic dysfunction (see wall motion). The estimated ejection fraction is 45 %. Unable to assess diastolic dysfunction. Infero-Basal: Akinetic. Basal inferoseptal: Hypokinetic. Basal anteroseptal: Hypokinetic. Mid-Posterior: Hypokinetic. Mid- inferoseptal : Hypokinetic. Mid-anteroseptal : Hypokinetic. Lateral Mentcle : Hypokinetic. Septal Mentcle : Hypokinetic. Right Ventricle Normal RV size. ICD or pacer leads identified within the right ventricle. Normal systolic function. Atria The left atrium is severely enlarged. The right atrium is severely enlarged. ICD or pacer leads identified within the right atrium. No doppler evidence for ASD. Mitral Valve There is mild to moderate mitral annular calcification. Extension of the mitral annular calcification onto the base of the posterior mitral valve leaflet. Mild focal mitral valve calcification, bileaflet. Moderate (2+) mitral valve insufficiency. Tricuspid Valve Normal tricuspid valve. Moderate (2+) tricuspid valve insufficiency. Right ventricular systolic pressure estimated to be 29 mmHg. Aortic Valve Trisinus/trileaflet aortic valve. Mild diffuse aortic valve thickening. Mild focal aortic valve calcification. Pulmonic Valve The pulmonic valve is not well visualized. Trivial pulmonic valve insufficiency. Great Vessels Normal sized aortic root. Pericardium/Pleural No pericardial effusion. Medication Diluted definity 4ml given slow IV push to enhance endocardial definition. MMode/2D Measurements & Calculations LVIDd: 4.3 cm IVSd: 1.2 cm Ao root diam: 3.2 cm LVIDs: 3.0 cm LVPWd: 0.84 cm RVDd: 3.2 cm FS: 30.0 % LAV(MOD-bp): 125.8 ml LA A4 area: 33.4 cm2 LA dimension(2D): 5.9 cm LAV(MOD-bp) Indexed: 75.5 ml/m2 LAV(MOD-sp2): 118.5 ml LAV(MOD-sp4): 129.9 ml RA A4 area: 34.3 cm2 Doppler Measurements & Calculations MV E max catrina: 98.7 cm/sec Ao V2 max: 100.4 cm/sec LV V1 max: 69.6 cm/sec Ao max P.0 mmHg LV V1 max P.9 mmHg Ao V2 mean: 63.4 cm/sec Ao mean P.8 mmHg Ao V2 VTI: 18.5 cm PA V2 max: 52.1 cm/sec TR max catrina: 255.8 cm/sec TR max P.2 mmHg ECHO/Echo Complete W/ Contrast Interpretation Summary The study was technically difficult. Contrast injection was performed. Mild segmental systolic dysfunction (see wall motion). The estimated ejection fraction is 45 %. The left atrium is severely enlarged. The right atrium is severely enlarged. There is mild to moderate mitral annular calcification. Extension of the mitral annular calcification onto the base of the posterior mi tral valve leaflet. Mild focal mitral valve calcification, bileaflet. Moderate (2+) mitral valve insufficiency. Moderate (2+) tricuspid valve insufficiency. Mild diffuse aortic valve thickening. Mild focal aortic valve calcification. Trivial pulmonic valve insufficiency. Right ventricular systolic pressure estimated to be 29 mmHg. Unable to assess diastolic dysfunction. ICD or pacer leads identified within the right atrium ICD or pacer leads identified within the right ventricle. Ordering Physician: Joseph Tovar Referring Physician: Abelardo Slade Performed By: Lissy Araujo RDCS, RVT
== END | disposition home or self-care (01) ==
LOC: CVS 10:05
PROVIDERS: PCP Family Medicine; Referring Provider Internal Medicine Cardiovascular Disease; Visit Provider Internal Medicine Cardiovascular Disease
DX: I42.8 Other cardiomyopathies (principal)
CPT/HCPCS: 93306; Q9957; A4216; C8929

== ENCOUNTER → 2023-04-10 | Outpatient (CLI) | payer OTHER, SELFPAY ==
[2023-04-10 13:20] LABS: Absolute Lymphocyte Count 1.18 X10^3/uL (0.83-4.51); Absolute Neutrophil Count 3.7 X10^3/uL (2.0-7.7); Basophil# 0.05 X10^3/uL; Basophil% 0.9 % (0-1); Eosinophil# 0.17 X10^3/uL; Hematocrit 39.2 % (37-47); Hemoglobin 12.8 g/dL (12.0-15.0); Lymphocyte # 1.18 X10^3/ul (0.83-4.51); Lymphocyte % 20.7 % (19-41); Mean Corp Hgb Conc 32.7 g/dL (32-36); Mean Corpuscular Hgb 31.1 pg (27.0-32.0); Mean Corpuscular Volume 95.1 fL (81-99); Mean Platelet Vol. 11.4 fl (6.2-12.0); Monocyte# 0.54 X10^3/uL; Monocyte% 9.5 % (0-10); NRBC Flagged by Analyzer 0 % (0-5); Neutrophil # 3.74 X10^3/uL (2.7-7.7); Neutrophil % 65.7 % (47-70); Platelet Count 168 K/mm3 (150-450); RBC Distribution Width CV 13.5 % (11.6-14.6); RBC Distribution Width SD 47.5 fl (35.1-43.9); Red Blood Count 4.12 M/mm3 (4.2-5.4); White Blood Count 5.7 K/mm3 (4.4-11.0)
[2023-04-10 13:48] LABS: BNP,B-Type NATRIURETIC PEPTIDE 533.1 pg/mL (0-100)
[2023-04-10 13:58] LABS: Anion Gap 8 (5-15); BUN 23 mg/dL (7-18); BUN/Creat Ratio 19.3 RATIO (10-20); Calcium,Total 9.5 mg/dL (8.5-10.1); Chloride 101 mmol/L (98-107); Creatinine, Serum 1.19 mg/dL (0.55-1.02); EST Glomerular Filtration Rate 46 mL/min (>60); Est Glom Filt Rate - Afr Amer 55 mL/min (>60); Glucose 97 mg/dL (74-106); Sodium Level 136 mmol/L (136-145); T4 Free Direct 1.17 ng/dL (0.76-1.46); Thyroid Stim Hormone (TSH) 2.24 uIU/mL (0.358-3.74)
== END | disposition home or self-care (01) ==
LOC: LAB 12:26
PROVIDERS: PCP Family Medicine; Referring Provider Nurse Practitioner Family; Visit Provider Nurse Practitioner Family
DX: E87.1 Hypo-osmolality and hyponatremia (principal); I42.8 Other cardiomyopathies; I48.0 Paroxysmal atrial fibrillation; R53.83 Other fatigue
CPT/HCPCS: 36415; 80048; 83880; 84439; 84443; 85025

== ENCOUNTER → 2023-12-01 | Outpatient (CLI) | payer OTHER, SELFPAY ==
[2023-12-01 14:16] LABS: Hematocrit 38.6 % (37-47); Hemoglobin 12.7 g/dL (12.0-15.0); Mean Corp Hgb Conc 32.9 g/dL (32-36); Mean Corpuscular Hgb 31.2 pg (27.0-32.0); Mean Corpuscular Volume 94.8 fL (81-99); Mean Platelet Vol. 10.7 fl (6.2-12.0); Platelet Count 150 K/mm3 (150-450); RBC Distribution Width CV 13.6 % (11.6-14.6); RBC Distribution Width SD 47.7 fl (35.1-43.9); Red Blood Count 4.07 M/mm3 (4.2-5.4); White Blood Count 5.2 K/mm3 (4.4-11.0)
[2023-12-01 14:45] LABS: Anion Gap 7 (5-15); BUN 31 mg/dL (7-18); BUN/Creat Ratio 24.8 RATIO (10-20); Calcium,Total 9.5 mg/dL (8.5-10.1); Chloride 101 mmol/L (98-107); Creatinine, Serum 1.25 mg/dL (0.55-1.02); EST Glomerular Filtration Rate 43 mL/min (>60); Est Glom Filt Rate - Afr Amer 52 mL/min (>60); Glucose 98 mg/dL (74-106); Potassium 4.6 mmol/L (3.5-5.1); Sodium Level 133 mmol/L (136-145)
== END | disposition home or self-care (01) ==
LOC: LAB 13:48
PROVIDERS: PCP Family Medicine; Referring Provider Internal Medicine Cardiovascular Disease; Visit Provider Internal Medicine Cardiovascular Disease
DX: I48.0 Paroxysmal atrial fibrillation (principal)
CPT/HCPCS: 36415; 80048; 85027

== ENCOUNTER → 2024-06-11 | Outpatient (CLI) | payer OTHER, SELFPAY ==
--- NOTE | 2024-06-11 10:45 | RAD_ITS ---
STUDY: X-RAY CHEST REASON FOR EXAM: Female, 84 years old. diminished lung sounds, sob, edema TECHNIQUE: Single AP portable view of the chest. COMPARISON: October 10, 2020 FINDINGS: 1. Stable left chest cardiac device and leads. 2. No change in moderate to marked cardiomegaly. 3. No acute consolidation or infiltrates. Fibrotic scarring redemonstrated in the lingula. 4. Stable spinal hardware. 5. There is hyperinflation of the lungs consistent with chronic obstructive lung disease (COPD). There is no demonstrated pleural abnormality. 6. Stable mediastinum and osseous structures. There is no demonstrated abnormality of the visualized soft tissue structures of the upper abdomen. RAD/Chest PA and Lateral IMPRESSION: Degenerative changes, as described above. No demonstrated acute cardiopulmonary process. Electronically Signed: Bhupinder Mooney MD at 15:36 EST ,
[2024-06-11 11:15] LABS: Absolute Lymphocyte Count 0.72 X10^3/uL (0.83-4.51); Absolute Neutrophil Count 3.6 X10^3/uL (2.0-7.7); Basophil# 0.03 X10^3/uL; Basophil% 0.6 % (0-1); Hematocrit 40.4 % (37-47); Hemoglobin 13.4 g/dL (12.0-15.0); Lymphocyte # 0.72 X10^3/ul (0.83-4.51); Lymphocyte % 14.7 % (19-41); Mean Corp Hgb Conc 33.2 g/dL (32-36); Mean Corpuscular Hgb 30.4 pg (27.0-32.0); Mean Corpuscular Volume 91.6 fL (81-99); Mean Platelet Vol. 10.7 fl (6.2-12.0); Monocyte# 0.42 X10^3/uL; Monocyte% 8.6 % (0-10); NRBC Flagged by Analyzer 0 % (0-5); Neutrophil % 73.7 % (47-70); Platelet Count 172 K/mm3 (150-450); RBC Distribution Width CV 14.2 % (11.6-14.6); RBC Distribution Width SD 47.8 fl (35.1-43.9); Red Blood Count 4.41 M/mm3 (4.2-5.4); White Blood Count 4.9 K/mm3 (4.4-11.0)
[2024-06-11 11:36] LABS: BNP,B-Type NATRIURETIC PEPTIDE 707.6 pg/mL (0-100)
[2024-06-11 11:40] LABS: AST(SGOT) 21 U/L (15-37); Alanine Aminotransfer ALT/SGPT 22 U/L (13-56); Albumin, Serum 3.5 g/dL (3.2-5.0); Alkaline Phosphatase 75 U/L (45-117); Anion Gap 6 (5-15); BUN 24 mg/dL (7-18); BUN/Creat Ratio 18.8 RATIO (10-20); Calcium,Total 9.3 mg/dL (8.5-10.1); Chloride 98 mmol/L (98-107); Creatinine, Serum 1.28 mg/dL (0.55-1.02); EST Glomerular Filtration Rate 42 mL/min (>60); Est Glom Filt Rate - Afr Amer 51 mL/min (>60); Globulin 3.6 g/dL (2.2-4.2); Glucose 107 mg/dL (74-106); Protein, Total 7.1 g/dL (6.4-8.2); Sodium Level 130 mmol/L (136-145)
== END | disposition home or self-care (01) ==
PROVIDERS: PCP Family Medicine; Referring Provider Physician Assistant Medical; Visit Provider Physician Assistant Medical
DX: I50.22 Chronic systolic (congestive) heart failure (principal); R06.02 Shortness of breath
CPT/HCPCS: 36415; 71046; 80053; 83880; 85025

== ENCOUNTER → 2024-07-16 | Outpatient (CLI) | payer OTHER, SELFPAY ==
[2024-07-16 14:09] LABS: Color, Urine Yellow (Yellow); Glucose, Dipstick Normal (Normal); Ketone-Dipstick Negative (Negative); Leukocyte Esterase-Dipstick Negative /ul (Negative); Nitrite-Dipstick Negative (Negative); Occult Blood-Urine Negative /ul (Negative); Protein-Dipstick Negative (Negative); Specific Gravity, Urine 1.005 (1.002-1.030); Urine Bilirubin Dipstick Negative (Negative); Urine Clarity Clear (Clear); Urine Urobilinogen Normal (Normal)
== END | disposition home or self-care (01) ==
LOC: LABSPEC 13:44
PROVIDERS: PCP Family Medicine; Referring Provider Nurse Practitioner Family; Visit Provider Nurse Practitioner Family
DX: R30.0 Dysuria (principal)
CPT/HCPCS: 81002; 87086; 87088